=== PATIENT | female | born 1970 | race Caucasian/White ===

== ENCOUNTER 2019-07-23 21:35 | Emergency (ER) | payer SELFPAY ==
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
[2019-07-23] MEDS ORDERED: TETANUS & DIPHTHERIA TOX,ADULT 0.5 ML VIAL ONE (22:23)
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
[2019-07-23 22:53] VITALS: BP 153/62; TEMP 98.6; O2SAT 99
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
== END 2019-07-23 22:37 | disposition home or self-care (01) ==
LOC: ER 21:35
DX: S00.83XA Contusion of other part of head, initial encounter (principal); M25.552 Pain in left hip; V49.50XA Passenger injured in collision with unspecified motor vehicles in traffic accident, initial encounter; I10 Essential (primary) hypertension; F17.210 Nicotine dependence, cigarettes, uncomplicated; Z23 Encounter for immunization; Z88.0 Allergy status to penicillin; Z88.5 Allergy status to narcotic agent
CPT/HCPCS: 70450; 71045; 72125; 90471; 90714; 99284

== ENCOUNTER 2019-12-13 13:40 | Emergency (ER) | payer SELFPAY, OTHER ==
[2019-12-13 15:55] LABS: Absolute Lymphocytes (CBC) 1.8 K/uL (0.7-4.9); Basophils % 0.4 % (0-1.3); Hematocrit 42.4 % (36.0-45.0); Lymphocytes % 21.5 % (15.3-44.8); MPV 8.8 fL (7.6-11.3); RBC Red Blood Cell Count 4.75 M/uL (3.86-4.86)
--- NOTE | 2019-12-13 16:05 | RAD REPORT ---
EXAM DESCRIPTION: RAD - Chest Single View - 12/13/2019 3:54 pm CLINICAL HISTORY: COPD;Congestion;Cough Chest pain. COMPARISON: Chest Single View dated 07/23/2019 FINDINGS: Portable technique limits examination quality. The lungs are grossly clear. The heart is normal in size. No displaced fractures. IMPRESSION: No acute intrathoracic process suspected.
[2019-12-13] MEDS ORDERED: ALBUTEROL 2.5 MG/3 ML NEB SOL ONE (16:12)
[2019-12-13] MEDS ORDERED: IPRATROPIUM BROM 0.5MG/2.5ML ONE (16:12)
[2019-12-13] MEDS ORDERED: predniSONE 20 MG TAB ONE (16:12)
[2019-12-13] MEDS ORDERED: METHYLPREDNISOLONE 125 MG INJ ONE (16:12)
[2019-12-13] MEDS ORDERED: CEFTRIAXONE/SWI 1gm 2 GM/20 ML SYR ONE (16:13)
[2019-12-13] MEDS ORDERED: NA CHLORIDE 0.9% 1,000 ML ONE (16:13)
[2019-12-13 16:20] LABS: ALT/SGPT 37 U/L (12-78); AST/SGOT 17 U/L (15-37); Albumin 3.3 g/dL (3.4-5.0); Alkaline Phosphatase 88 U/L (45-117); BUN Blood Urea Nitrogen 18 mg/dL (7-18); Bicarbonate 26 mmol/L (21-32); Bilirubin Direct < 0.1 mg/dL (0-0.2); Bilirubin Total 0.3 mg/dL (0.2-1.0); Glucose Level 84 mg/dL (74-106); NT PRO-BNP 15 pg/mL (<125); Potassium 4.1 mmol/L (3.5-5.1); Protein, Total 7.7 g/dL (6.4-8.2); Sodium Level 137 mmol/L (136-145); Troponin (Emerg Dept Use Only) < 0.02 ng/mL (0.0-0.045)
[2019-12-13] MEDS ORDERED: ASPIRIN 81 MG CHEWABLE TABLET ONE (16:20)
[2019-12-13 16:44] LABS: Urine Blood TRACE (NEG); Urine Glucose NEGATIVE (NEG); Urine Protein NEGATIVE (NEG); Urine pH 5.5 (5.0-7.0)
[2019-12-13] MEDS ORDERED: AZITHROMYCIN IV 500 MG in NA CHLORIDE 0.9% 250 ML IVPB ONE (17:00)
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
--- NOTE | 2019-12-13 17:51 | EDPHYS ---
Physician Documentation [facility] Name: Kaitlin Browning Age: 49 yrs Sex: Female : 1970 Arrival Date: 12/13/2019 Time: 13:44 Bed 7 Private MD: EMILY Physician Epifanio Flaherty HPI: 12/12 15:08 This 49 yrs old Female presents to ER via Ambulatory with complaints of dimitry Cough, Sore Throat, Dizziness. 15:08 This 49 yrs old Female presents to ER via Ambulatory with complaints of dimitry Cough, Sore Throat, Dizziness. 15:08 The patient or guardian reports cough, difficulty breathing, flu symptoms. Onset: The dimitry symptoms/episode began/occurred 3 day(s) ago. Severity of symptoms: At their worst the symptoms were mild, moderate, in the emergency department the symptoms are unchanged. Modifying factors: The symptoms are alleviated by. Associated signs and symptoms: The patient has no apparent associated signs or symptoms. The patient has experienced similar episodes in the past, a few times. 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 - Social history:: Smoking status: Patient reports the use of cigarette tobacco products, smokes one pack cigarettes per day. ROS: 15:09 Constitutional: Negative for fever, chills, and weight loss, Eyes: Negative for injury, dimitry pain, redness, and discharge, ENT: Negative for injury, pain, and discharge, Neck: Negative for injury, pain, and swelling, Cardiovascular: Negative for chest pain, palpitations, and edema, Abdomen/GI: Negative for abdominal pain, nausea, vomiting, diarrhea, and constipation, Back: Negative for injury and pain, : Negative for injury, bleeding, discharge, and swelling, MS/Extremity: Negative for injury and deformity, Skin: Negative for injury, rash, and discoloration, Neuro: Negative for headache, weakness, numbness, tingling, and seizure, Psych: Negative for depression, anxiety, suicide ideation, homicidal ideation, and hallucinations, Allergy/Immunology: Negative for hives, rash, and allergies, Endocrine: Negative for neck swelling, polydipsia, polyuria, polyphagia, and marked weight changes, Hematologic/Lymphatic: Negative for swollen nodes, abnormal bleeding, and unusual bruising. 15:09 Respiratory: Positive for cough, shortness of breath, wheezing, inspiratory, expiratory. Exam: 15:09 Constitutional: This is a well developed, well nourished patient who is awake, alert, dimitry and in no acute distress. Head/Face: Normocephalic, atraumatic. Eyes: Pupils equal round and reactive to light, extra-ocular motions intact. Lids and lashes normal. Conjunctiva and sclera are non-icteric and not injected. Cornea within normal limits. Periorbital areas with no swelling, redness, or edema. ENT: Nares patent. No nasal discharge, no septal abnormalities noted. Tympanic membranes are normal and external auditory canals are clear. Oropharynx with no redness, swelling, or masses, exudates, or evidence of obstruction, uvula midline. Mucous membranes moist. Neck: Trachea midline, no thyromegaly or masses palpated, and no cervical lymphadenopathy. Supple, full range of motion without nuchal rigidity, or vertebral point tenderness. No Meningismus. Chest/axilla: Normal chest wall appearance and motion. Nontender with no deformity. No lesions are appreciated. Cardiovascular: Regular rate and rhythm with a normal S1 and S2. No gallops, murmurs, or rubs. Normal PMI, no JVD. No pulse deficits. Abdomen/GI: Soft, non-tender, with normal bowel sounds. No distension or tympany. No guarding or rebound. No evidence of tenderness throughout. Back: No spinal tenderness. No costovertebral tenderness. Full range of motion. Skin: Warm, dry with normal turgor. Normal color with no rashes, no lesions, and no evidence of cellulitis. MS/ Extremity: Pulses equal, no cyanosis. Neurovascular intact. Full, normal range of motion. Neuro: Awake and alert, GCS 15, oriented to person, place, time, and situation. Cranial nerves II-XII grossly intact. Motor strength 5/5 in all extremities. Sensory grossly intact. Cerebellar exam normal. Normal gait. Psych: Awake, alert, with orientation to person, place and time. Behavior, mood, and affect are within normal limits. 15:09 Respiratory: mild respiratory distress is noted, Respirations: labored breathing, that is moderate, Breath sounds: bronchial sounds, decreased breath sounds, wheezing: inspiratory expiratory Respiratory rate: 18 17:03 ECG was reviewed by the Attending Physician. [facility] Vital Signs: 14:19 BP 142 / 71; Pulse 84; Resp 18 S; Temp 98.5(O); Pulse Ox 95% on R/A; Height 6 ft. 0 in. ca1 (182.88 cm) (R); 16:09 BP 125 / 66; Pulse 75; Resp 17; Pulse Ox 97% on R/A; tw2 17:01 BP 129 / 71; Pulse 80; Resp 20; Pulse Ox 98% on R/A; tw2 18:11 BP 102 / 67; Pulse 91; Resp 19; Pulse Ox 98% ; jl7 MDM: 14:40 Patient medically screened. dimitry 15:10 Differential diagnosis: viral Infection, bacterial infection, URI, bronchitis, dimitry pneumonia UTI. Differential Diagnosis: Bronchitis Influenza Upper Respiratory Infection Pharyngitis Asthma Exacerbation Pneumonia. Data reviewed: vital signs, nurses notes, lab test result(s), EKG, radiologic studies. Data interpreted: crate opener: rate is 84 beats/min, rhythm is regular, Pulse oximetry: on room air is 95 %. Test interpretation: by ED physician or midlevel provider: ECG, plain radiologic studies. Counseling: I had a detailed discussion with the patient and/or guardian regarding: the historical points, exam findings, and any diagnostic results supporting the discharge/admit diagnosis, lab results, radiology results, the need for outpatient follow up. 16:12 ED course: explained importance of not smoking. [facility] 12/12 15:08 Order name: Basic Metabolic Panel; Complete Time: 16:34 [facility] 12/12 15:08 Order name: CBC with Diff; Complete Time: 16:05 [facility] 12/12 15:08 Order name: LFT's; Complete Time: 16:34 [facility] 12/12 15:08 Order name: Magnesium; Complete Time: 16:34 [facility] 12/12 15:08 Order name: NT PRO-BNP; Complete Time: 16:34 [facility] 12/12 15:08 Order name: Troponin (emerg Dept Use Only); Complete Time: 16:34 [facility] 12/12 15:08 Order name: XRAY Chest (1 view); Complete Time: 16:11 [facility] 12/12 15:08 Order name: Blood Culture Adult (2) 12/12 15:08 Order name: COVID-19 [facility] 12/12 15:08 Order name: Influenza Screen (a \T\ B); Complete Time: 16:34 [facility] 12/12 15:12 Order name: DD; Complete Time: 16:05 12/12 15:12 Order name: Urine Culture 12/12 15:26 Order name: Urine Dipstick--Ancillary (enter results); Complete Time: 17:49 12/12 15:26 Order name: Urine --Ancillary (enter results); Complete Time: 17:49 12/12 15:08 Order name: EKG; Complete Time: 15:09 [facility] 12/12 15:08 Order name: Cardiac monitoring; Complete Time: 16:41 [facility] 12/12 15:08 Order name: EKG - Nurse/Tech; Complete Time: 16:41 [facility] 12/12 15:08 Order name: IV Saline Lock; Complete Time: 15:47 [facility] 12/12 15:08 Order name: Labs collected and sent; Complete Time: 15:47 [facility] 12/12 15:08 Order name: O2 Per Protocol; Complete Time: 15:47 [facility] 12/12 16:05 Order name: CT Chest For PE Angio; Complete Time: 17:49 [facility] 12/12 15:08 Order name: O2 Sat Monitoring; Complete Time: 15:47 [facility] 12/12 15:12 Order name: Urine Dipstick-Ancillary (obtain specimen); Complete Time: 15:46 [facility] 12/12 15:12 Order name: Urine Test (obtain specimen); Complete Time: 15:46 [facility] EC:03 Rate is 76 beats/min. Rhythm is regular. QRS [place] is Normal. DC interval is normal. QRS dimitry interval is normal. QT interval is normal. No Q waves. T waves are Normal. No ST changes noted. Clinical impression: NSR w/ Non-specific ST/T Changes and No evidence of ischemia. Interpreted by me. Reviewed by me. Administered Medications: 15:45 Drug: NS 0.9% 500 ml Route: IV; Rate: bolus; Site: right hand; jl7 16:30 Follow up: Response: No adverse reaction; IV Status: Completed infusion; IV Intake: jl7 500ml 16:00 Drug: SOLU-Medrol 125 mg Route: IVP; Site: right hand; jl7 16:55 Follow up: Response: No adverse reaction jl7 16:00 Drug: predniSONE 60 mg Route: PO; jl7 16:54 Follow up: Response: No adverse reaction jl7 16:10 Drug: Aspirin 162 mg Route: PO; jl7 16:54 Follow up: Response: No adverse reaction jl7 16:35 Drug: Rocephin 2 grams Route: IV; Rate: per protocol; Site: right hand; jl7 16:40 Follow up: Response: No adverse reaction; IV Status: Completed infusion jl7 16:39 Drug: NS 0.9% 1000 ml Route: IV; Rate: 125 ml/hr; Site: right hand; jl7 18:30 Follow up: IV Status: Completed infusion jl7 16:39 Drug: Albuterol - atroVENT (3:1) (2.5 mg - 0.5 mg) 3 ml Route: Nebulizer; jl7 16:54 Follow up: Response: No adverse reaction jl7 17:15 Drug: Zithromax 500 mg Route: IVPB; Infused Over: 1 hrs; Site: right hand; jl7 18:52 Follow up: IV Status: Completed infusion jl7 18:00 Drug: Pepcid 20 mg Route: IVP; Site: right hand; jl7 18:10 Follow up: Response: No adverse reaction [facility] Disposition: 12/13/19 17:50 Discharged to Home. Impression: Tobacco abuse counseling, Tobacco use, Bronchitis, not specified as acute or chronic, Acute upper respiratory infection, unspecified, Other pneumonia, unspecified organism - atypical/viral. - Condition is Stable. - Discharge Instructions: Acute Bronchitis, Adult, Steps to Quit Smoking, Smoking Hazards, Upper Respiratory Infection, Adult, Cool Mist Vaporizer, Cough, Adult, [id number], Aspirin and Your Heart, Cough, Adult. - Prescriptions for Prednisone 20 mg Oral Tablet - take 3 tablet by ORAL route once daily for 5 days; 15 tablet. Albuterol Sulfate 2.5 mg /3 mL (0.083 %) Inhalation Solution for Nebulization - inhale 1 unit by NEBULIZATION route every 8 hours As needed; 1 box. Albuterol Sulfate 90 mcg/actuation - inhale 1-2 puff by INHALATION route every 4-6 hours; 1 Inhaler. Zithromax 500 mg Oral Tablet - take 1 tablet by ORAL route once daily for 5 days; 5 tablet. Pepcid 20 mg Oral Tablet - take 1 tablet by ORAL route every 12 hours for 10 days; 20 tablet. - Medication Reconciliation Form, Thank You Letter, Antibiotic Education, Prescription Opioid Use, Work release form form. - Follow up: Private Physician; When: 2 - 3 days; Reason: Recheck today's complaints, Continuance of care, Re-evaluation by your physician. Follow up: Juan Ovalles; When: 2 - 3 days; Reason: Recheck today's complaints, Re-evaluation by your physician. - Problem is new. - Symptoms have improved. Signatures: Dispatcher [employer] EDMS Epifanio Flaherty MD MD cha Leal, Jahala, RN RN jl7 Keke Carlson RN RN ca1 Corrections: (The following items were deleted from the chart) 18:53 17:50 12/13/2019 17:50 Discharged to Home. Impression: Tobacco abuse counseling; krunal Tobacco use; Bronchitis, not specified as acute or chronic; Acute upper respiratory infection, unspecified; Other pneumonia, unspecified organism - atypical/viral. Condition is Stable. Discharge Instructions: Acute Bronchitis, Adult, Steps to Quit Smoking, Smoking Hazards, Upper Respiratory Infection, Adult, Cool Mist Vaporizer, Cough, Adult, [id number], Cough, Adult, Aspirin and Your Heart. Prescriptions for Prednisone 20 mg Oral Tablet - take 3 tablet by ORAL route once daily for 5 days; 15 tablet, Albuterol Sulfate 2.5 mg /3 mL (0.083 %) Inhalation Solution for Nebulization - inhale 1 unit by NEBULIZATION route every 8 hours As needed; 1 box, Albuterol Sulfate 90 mcg/actuation - inhale 1-2 puff by INHALATION route every 4-6 hours; 1 Inhaler, Zithromax 500 mg Oral Tablet - take 1 tablet by ORAL route once daily for 5 days; 5 tablet. and Forms are Medication Reconciliation Form, Thank You Letter, Antibiotic Education, Prescription Opioid Use. Follow up: Private Physician; When: 2 - 3 days; Reason: Recheck today's complaints, Continuance of care, Re-evaluation by your physician. Follow up: Juan Ovalles; When: 2 - 3 days; Reason: Recheck today's complaints, Re-evaluation by your physician. Problem is new. Symptoms have improved. dimitry
--- NOTE | 2019-12-13 17:51 | ER ---
Nurse's Notes [facility] Name: Kaitlin Browning Age: 49 yrs Sex: Female : 1970 Arrival Date: 12/13/2019 Time: 13:44 Bed 7 Private MD: Diagnosis: Tobacco abuse counseling;Tobacco use;Bronchitis, not specified as acute or chronic;Acute upper respiratory infection, unspecified;Other pneumonia, unspecified organism-atypical/viral Presentation: 12/12 14:19 Chief complaint: Patient states: Productive cough x 1 month, nasal congestion, ca1 headache, fever since Thursday. RLQ pain, N/V. Muscle aches, sore throat. Coronavirus screen: Client denies travel out of the [place] in the last 14 days. congestion, cough unrelated to allergies, fatigue, fever, headache, muscle pain, nausea, runny nose, sore throat, loss of taste or smell, vomiting. Client presents with at least one sign or symptom that may indicate coronavirus-19. Standard/surgical mask placed on the client. Provider contacted for isolation considerations. The client reports previous COVID testing was negative. Ebola Screen: Patient negative for fever greater than or equal to 101.5 degrees Fahrenheit, and additional compatible Ebola Virus Disease symptoms Patient denies exposure to infectious person. Patient denies travel to an Ebola-affected area in the 21 days before illness onset. No symptoms or risks identified at this time. Initial Sepsis Screen: Does the patient meet any 2 criteria? No. Patient's initial sepsis screen is negative. Does the patient have a suspected source of infection? No. Patient's initial sepsis screen is negative. Risk Assessment: Do you want to hurt yourself or someone else? Patient reports no desire to harm self or others. Onset of symptoms was December 13, 2019. 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 - Social history:: Smoking status: Patient reports the use of cigarette tobacco products, smokes one pack cigarettes per day. Screenin:12 Abuse screen: Denies threats or abuse. Nutritional screening: No deficits noted. tw2 Tuberculosis screening: No symptoms or risk factors identified. Fall Risk None identified. Assessment: 15:00 General: Appears in no apparent distress. uncomfortable, Behavior is calm, cooperative, jl7 appropriate for age. Pain: Complains of pain in left subscapular area. Neuro: Level of Consciousness is awake, alert, obeys commands, Oriented to person, place, time, situation. Cardiovascular: Patient's skin is warm and dry. Respiratory: Airway is patent Respiratory effort is even, unlabored, Respiratory pattern is regular, symmetrical, not auscultated. : Reports urinary frequency. EENT: Throat is clear. Derm: Skin is pink, warm \T\ dry. 16:00 Reassessment: Patient appears in no apparent distress at this time. No changes from jl7 previously documented assessment. Patient and/or family updated on plan of care and expected duration. Pain level reassessed. Patient is alert, oriented x 3, equal unlabored respirations, skin warm/dry/pink. 17:02 Reassessment: Patient appears in no apparent distress at this time. No changes from tw2 previously documented assessment. Patient and/or family updated on plan of care and expected duration. Pain level reassessed. Patient is alert, oriented x 3, equal unlabored respirations, skin warm/dry/pink. 18:11 Reassessment: Pt will be discharged once antibiotic is done infusing. jl7 Vital Signs: 14:19 BP 142 / 71; Pulse 84; Resp 18 S; Temp 98.5(O); Pulse Ox 95% on R/A; Height 6 ft. 0 in. ca1 (182.88 cm) (R); 16:09 BP 125 / 66; Pulse 75; Resp 17; Pulse Ox 97% on R/A; tw2 17:01 BP 129 / 71; Pulse 80; Resp 20; Pulse Ox 98% on R/A; tw2 18:11 BP 102 / 67; Pulse 91; Resp 19; Pulse Ox 98% ; jl7 ED Course: 13:44 Patient arrived in ED. mr 14:22 Triage completed. ca1 14:23 Arm band placed on right wrist. ca1 14:37 Placed in gown. Bed in low position. Call light in reach. Pulse ox on. NIBP on. tw2 14:40 Epifanio Flaherty MD is Attending Physician. dimitry 15:10 Alonzo Rogel RN is Primary Nurse. jl7 15:45 Initial lab(s) drawn, by me, sent to lab. Flu and/or RSV swab sent to lab. COVID-19 jl7 swab sent to lab. Inserted saline lock: 20 gauge in right hand, using aseptic technique. Blood collected. 15:45 First set of blood cultures drawn by me. jl7 15:54 XRAY Chest (1 view) In Process Unspecified. EDMS 16:35 Second set of blood cultures drawn by me. jl7 17:14 CT Chest For PE Angio In Process Unspecified. EDMS 17:49 Juan Ovalles MD is Referral Physician. dimitry 18:51 No provider procedures requiring assistance completed. IV discontinued, intact, jl7 bleeding controlled, No redness/swelling at site. Pressure dressing applied. Administered Medications: 15:45 Drug: NS 0.9% 500 ml Route: IV; Rate: bolus; Site: right hand; jl7 16:30 Follow up: Response: No adverse reaction; IV Status: Completed infusion; IV Intake: jl7 500ml 16:00 Drug: SOLU-Medrol 125 mg Route: IVP; Site: right hand; jl7 16:55 Follow up: Response: No adverse reaction jl7 16:00 Drug: predniSONE 60 mg Route: PO; jl7 16:54 Follow up: Response: No adverse reaction jl7 16:10 Drug: Aspirin 162 mg Route: PO; jl7 16:54 Follow up: Response: No adverse reaction jl7 16:35 Drug: Rocephin 2 grams Route: IV; Rate: per protocol; Site: right hand; jl7 16:40 Follow up: Response: No adverse reaction; IV Status: Completed infusion jl7 16:39 Drug: NS 0.9% 1000 ml Route: IV; Rate: 125 ml/hr; Site: right hand; jl7 18:30 Follow up: IV Status: Completed infusion jl7 16:39 Drug: Albuterol - atroVENT (3:1) (2.5 mg - 0.5 mg) 3 ml Route: Nebulizer; jl7 16:54 Follow up: Response: No adverse reaction jl7 17:15 Drug: Zithromax 500 mg Route: IVPB; Infused Over: 1 hrs; Site: right hand; jl7 18:52 Follow up: IV Status: Completed infusion jl7 18:00 Drug: Pepcid 20 mg Route: IVP; Site: right hand; jl7 18:10 Follow up: Response: No adverse reaction jl7 Intake: 16:30 IV: 500ml; Total: 500ml. jl7 Outcome: 17:50 Discharge ordered by . dimitry 18:51 Discharged to home ambulatory. jl7 18:51 Condition: stable 18:51 Discharge instructions given to patient, Instructed on discharge instructions, follow up and referral plans. medication usage, Demonstrated understanding of instructions, follow-up care, medications, Prescriptions given X 5 18:53 Patient left the ED. jl7 Addendum: 12/16/2019 18:53 Addendum: COVID-19 Result: Negative result given to RN to notify pt. Notified pt of i w negative COVID 19 swab results. Pt advised that even with a negative test result they should remain in isolation until symptom free for 3 days without medication. Pt also advised to return to the ED for worsening symptoms. Signatures: Dispatcher [employer] EDMS Epifanio Flaherty MD MD cha Rivera, Neda Alessandra Yi, RN ULISES iw Domi Sears RN RN tw2 Alonzo Rogel RN RN jl7 Keke Carlson RN RN ca1 Corrections: (The following items were deleted from the chart) 12/12 14:24 14:19 Chief complaint: Patient states: Productive cough x 1 month, nasal congestion, ca1 headache, fever since Thursday. RLQ pain, N/V. Muscle aches. ca1 14:24 14:19 Coronavirus screen: Client denies travel out of the [place] in the last 14 days. ca1 congestion, cough unrelated to allergies, fatigue, fever, headache, muscle pain, nausea, runny nose, loss of taste or smell, vomiting. Client presents with at least one sign or symptom that may indicate coronavirus-19. Standard/surgical mask placed on the client. Provider contacted for isolation considerations. The client reports previous COVID testing was negative. ca1 16:57 16:57 Response: No adverse reaction; IV Status: Completed infusion; IV Intake: 500ml [id number]
[2019-12-13] MEDS ORDERED: FAMOTIDINE 20 MG/2 ML VIAL IV ONE (18:12)
[2019-12-13 19:11] VITALS: TEMP 98.5
[2019-12-13 19:14] VITALS: O2SAT 98
[2019-12-13 19:15] VITALS: BP 102/67
--- NOTE | 2019-12-14 05:38 | EKG ---
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
== END 2019-12-13 18:53 | disposition home or self-care (01) ==
LOC: ER 13:40
DX: J12.9 Viral pneumonia, unspecified (principal); Z20.828 Contact with and (suspected) exposure to other viral communicable diseases; J40 Bronchitis, not specified as acute or chronic; I10 Essential (primary) hypertension; Z72.0 Tobacco use; Z71.6 Tobacco abuse counseling; Z88.0 Allergy status to penicillin; Z88.5 Allergy status to narcotic agent
CPT/HCPCS: 36415; 71045; 71275; 80048; 80076; 81003; 81025; 83735; 83880; 84484; 85025; 85379; 87040; 87086; 87088; 87804; 93005; 96361; 96365; 96366; 96375; 99284; J0456; J0696; J2930; J7030; J7050; J7512; Q9967; U0002

== ENCOUNTER 2020-08-13 17:32 | Emergency (ER) | payer BC, SELFPAY ==
[2020-08-13 20:02] LABS: Absolute Lymphocytes (CBC) 2.2 K/uL (0.7-4.9); Basophils % 0.8 % (0-1.3); Hematocrit 39.8 % (36.0-45.0); MPV 8.8 fL (7.6-11.3); RBC Red Blood Cell Count 4.53 M/uL (3.86-4.86)
[2020-08-13 20:16] LABS: Protime INR 0.97
[2020-08-13 20:25] LABS: ALT/SGPT 31 U/L (12-78); AST/SGOT 20 U/L (15-37); Albumin 3.5 g/dL (3.4-5.0); Alkaline Phosphatase 81 U/L (45-117); BUN Blood Urea Nitrogen 14 mg/dL (7-18); Bicarbonate 23 mmol/L (21-32); Bilirubin Direct < 0.1 mg/dL (0-0.2); Bilirubin Total 0.2 mg/dL (0.2-1.0); Glucose Level 83 mg/dL (74-106); Magnesium 2.2 mg/dL (1.8-2.4); NT PRO-BNP 91 pg/mL (<125); Potassium 3.8 mmol/L (3.5-5.1); Protein, Total 7.3 g/dL (6.4-8.2); Sodium Level 139 mmol/L (136-145); Troponin (Emerg Dept Use Only) < 0.02 ng/mL (0.0-0.045)
--- NOTE | 2020-08-13 20:26 | RAD REPORT ---
EXAM DESCRIPTION: RAD - Chest Single View - 08/13/2020 7:54 pm CLINICAL HISTORY: CHEST PAIN COMPARISON: Portable November 2019 TECHNIQUE: AP portable chest image was obtained 08/13/2020 7:54 pm . FINDINGS: Lung volumes are low. No focal mass or consolidation. Cardiac silhouette is enlarged from prior imaging. Pulmonary vasculature increased and there is increased interstitial opacification. No measurable pleural effusion and no pneumothorax. No acute bony abnormality seen. No acute aortic find ings suspected. IMPRESSION: Mild CHF/volume overload findings are evident. No focal mass or consolidation.
[2020-08-13] MEDS ORDERED: FUROSEMIDE 40 MG/4 ML VIAL ONE (22:06)
--- NOTE | 2020-08-13 23:24 | ER ---
Nurse's Notes [facility] Name: Kaitlin Browning Age: 50 yrs Sex: Female : 1970 Arrival Date: 08/13/2020 Time: 17:36 Bed 20 Private MD: Diagnosis: Chest pain, unspecified;Congestive heart failure;Dizziness and giddiness Presentation: 08/13 17:40 Chief complaint: Patient states: Head pressure, dizzy, R arm tingling, chest heaviness, ll1 SOB for 3 days. No major or fever. No N/V/D. Coronavirus screen: Client denies travel out of the [place] in the last 14 days. cough unrelated to allergies, difficulty breathing, fatigue, headache, muscle pain, shortness of breath, loss of taste or smell, Client presents with at least one sign or symptom that may indicate coronavirus-19. Standard/surgical mask placed on the client. Ebola Screen: Patient denies travel to an Ebola-affected area in the 21 days before illness onset. Initial Sepsis Screen: Does the patient meet any 2 criteria? No. Patient's initial sepsis screen is negative. Does the patient have a suspected source of infection? No. Patient's initial sepsis screen is negative. Risk Assessment: Do you want to hurt yourself or someone else? Patient reports no desire to harm self or others. Onset of symptoms was August 11, 2020. 17:40 Method Of Arrival: Ambulatory ll1 17:40 Acuity: PERRY 3 ll1 Historical: - Allergies: 17:43 Morphine; ll1 17:43 pcn; ll1 - PMHx: 17:43 CHF; HTN; ll1 - PSHx: 17:43 ; ll1 - Immunization history:: Flu vaccine is up to date. - Social history:: Smoking status: Patient reports the use of cigarette tobacco products, smokes one pack cigarettes per day. Screenin:45 Abuse screen: Denies threats or abuse. Denies injuries from another. Nutritional ad5 screening: No deficits noted. Tuberculosis screening: No symptoms or risk factors identified. Fall Risk None identified. Assessment: 19:45 General: Appears in no apparent distress. comfortable, Behavior is calm, cooperative, ad5 appropriate for age. Pain: Complains of pain in chest Pain does not radiate. Pain began 2-3 days ago. Neuro: Level of Consciousness is awake, alert, obeys commands, Oriented to person, place, time, situation, Appropriate for age Piece Jobber are equal bilaterally Moves all extremities. Gait is steady, Speech is normal, Facial symmetry appears normal, Pupils are PERRLA, Intact Reports dizziness. Cardiovascular: Reports chest pain, shortness of breath, Denies nausea, syncope, vomiting, Heart tones present Capillary refill < 3 seconds Clubbing of nail beds is absent JVD is absent Patient's skin is warm and dry. Pulses are all present. Rhythm is regular. Respiratory: No deficits noted. Reports shortness of breath "at night" Airway is patent Trachea midline Respiratory effort is even, unlabored, Respiratory pattern is regular, symmetrical, Breath sounds are clear bilaterally. GI: No deficits noted. : No deficits noted. EENT: No deficits noted. Derm: No deficits noted. Skin is pink, warm \\T\\ dry. 20:35 Reassessment: Patient appears in no apparent distress at this time. Patient and/or ad5 family updated on plan of care and expected duration. Pain level reassessed. Patient is alert, oriented x 3, equal unlabored respirations, skin warm/dry/pink. 21:20 Reassessment: Patient appears in no apparent distress at this time. Patient and/or ad5 family updated on plan of care and expected duration. Pain level reassessed. Patient is alert, oriented x 3, equal unlabored respirations, skin warm/dry/pink. 22:30 Reassessment: Patient appears in no apparent distress at this time. Patient and/or ad5 family updated on plan of care and expected duration. Pain level reassessed. Patient is alert, oriented x 3, equal unlabored respirations, skin warm/dry/pink. Patient states symptoms have improved. 23:30 Reassessment: Patient appears in no apparent distress at this time. No changes from ad5 previously documented assessment. Patient denies pain at this time. Vital Signs: 17:40 BP 141 / 95; Pulse 81; Resp 17; Temp 98.3; Pulse Ox 97% ; Weight 145.15 kg; Height 6 ll1 ft. 0 in. (182.88 cm); Pain 9/10; 19:30 BP 113 / 61; Pulse 62; Resp 18 S; Pulse Ox 98% on R/A; ad5 20:34 BP 120 / 76; Pulse 73; Resp 18 S; Pulse Ox 100% on R/A; ad5 21:20 BP 134 / 69; Pulse 72; Resp 17 S; Pulse Ox 98% on R/A; ad5 22:02 BP 139 / 69; Pulse 71; Resp 17 S; Pulse Ox 99% on R/A; ad5 23:00 BP 130 / 65; Pulse 70; Resp 16 S; Pulse Ox 98% on R/A; ad5 17:40 Body Mass Index 43.40 (145.15 kg, 182.88 cm) ll1 ED Course: 17:36 Patient arrived in ED. bp1 17:43 Triage completed. ll1 17:43 Arm band placed on. ll1 18:42 Patient placed in an exam room, on a stretcher. ll1 18:45 Patient has correct armband on for positive identification. Placed in gown. Bed in low ad5 position. Call light in reach. Side rails up X 1. color television console monitor on. Pulse ox on. NIBP on. Door closed. Noise minimized. Head of bed elevated. 19:01 Quinton Black NP is PHCP. pm1 19:01 Yaakov Mathew MD is Attending Physician. pm1 19:23 Matheus Suarez is Primary Nurse. ad5 19:45 No provider procedures requiring assistance completed. Initial lab(s) drawn, by me, ad5 sent to lab. Inserted saline lock: 20 gauge in right hand, using aseptic technique. Patient maintains SpO2 saturation greater than 95% on room air. 19:54 XRAY Chest (1 view) In Process Unspecified. EDMS 23:39 IV discontinued, intact, bleeding controlled, No redness/swelling at site. Pressure ad5 dressing applied. Administered Medications: 21:53 Drug: Lasix (furosemide) 40 mg Route: IVP; Site: right hand; ad5 23:00 Follow up: Response: No adverse reaction ad5 Outcome: 23:39 AMA AMA form signed ad5 23:39 Condition: stable 23:39 Discharge instructions given to patient, Instructed on follow up and referral plans. the need for admit, Demonstrated understanding of follow-up care. 06 00:03 Patient left the ED. ad5 Signatures: Dispatcher [employer] EDMS Quinton Black, NIYA SOLAR INSTALLATION FOREMAN pm1 Trever Trejo RN RN ll1 Elida Mccormick [facility] Suarez, Matheus ad5
--- NOTE | 2020-08-13 23:24 | EDPHYS ---
Physician Documentation [facility] Name: Kaitlin Browning Age: 50 yrs Sex: Female : 1970 Arrival Date: 08/13/2020 Time: 17:36 Bed 20 Private MD: ED Physician Yaakov Mathew HPI: 08/13 19:19 This 50 yrs old Female presents to ER via Ambulatory with complaints of Chest pm1 Pain, Dizziness, Breathing Difficulty. 19:19 The patient or guardian reports chest pain that is located primarily in the mid-sternal pm1 area and right breast. Onset: 3 day(s) ago. The pain does not radiate. Associated signs and symptoms: Pertinent positives: dizziness, shortness of breath, Pertinent negatives: abdominal pain, cough. The chest pain is described as a pressure. Duration: The patient or guardian reports a single episode, that is still ongoing. Modifying factors: The symptoms are alleviated by nothing. the symptoms are aggravated by nothing. Severity of pain: in the emergency department the pain is unchanged. The patient has not experienced similar symptoms in the past. The patient has not recently seen a physician. Patient has not taken any medications for a long time. In the past she has taken lasix. Only took it for about 3 months. When prescription ran out, she did not get it refilled. Historical: - Allergies: 17:43 Morphine; ll1 17:43 pcn; ll1 - PMHx: 17:43 CHF; HTN; ll1 - PSHx: 17:43 ; ll1 - Immunization history:: Flu vaccine is up to date. - Social history:: Smoking status: Patient reports the use of cigarette tobacco products, smokes one pack cigarettes per day. ROS: 19:19 Constitutional: Negative for fever, chills, and weight loss, Eyes: Negative for injury, pm1 pain, redness, and discharge, ENT: Negative for injury, pain, and discharge, Neck: Negative for injury, pain, and swelling. 19:19 Abdomen/GI: Negative for abdominal pain, nausea, vomiting, diarrhea, and constipation, Back: Negative for injury and pain, : Negative for injury, bleeding, discharge, and swelling, MS/Extremity: Negative for injury and deformity, Skin: Negative for injury, rash, and discoloration. 19:19 Cardiovascular: Positive for chest pain, Negative for edema. 19:19 Respiratory: Positive for shortness of breath, Negative for cough. 19:19 Neuro: Positive for dizziness, Negative for numbness, tingling, weakness. Exam: 19:19 Constitutional: This is a well developed, well nourished patient who is awake, alert, pm1 and in no acute distress. Head/Face: Normocephalic, atraumatic. Eyes: Pupils equal round and reactive to light, extra-ocular motions intact. Lids and lashes normal. Conjunctiva and sclera are non-icteric and not injected. Cornea within normal limits. Periorbital areas with no swelling, redness, or edema. ENT: Nares patent. No nasal discharge, no septal abnormalities noted. Tympanic membranes are normal and external auditory canals are clear. Oropharynx with no redness, swelling, or masses, exudates, or evidence of obstruction, uvula midline. Mucous membranes moist. Neck: Trachea midline, no thyromegaly or masses palpated, and no cervical lymphadenopathy. Supple, full range of motion without nuchal rigidity, or vertebral point tenderness. No Meningismus. Chest/axilla: Normal chest wall appearance and motion. Nontender with no deformity. No lesions are appreciated. 19:19 Back: No spinal tenderness. No costovertebral tenderness. Full range of motion. Skin: Warm, dry with normal turgor. Normal color with no rashes, no lesions, and no evidence of cellulitis. MS/ Extremity: Pulses equal, no cyanosis. Neurovascular intact. Full, normal range of motion. 19:19 Cardiovascular: Rate: normal, Rhythm: irregular, Pulses: no pulse deficits are appreciated, Heart sounds: normal, Edema: pedal edema, that is mild, ankle edema, that is mild. 19:19 Respiratory: the patient does not display signs of respiratory distress, Respirations: normal, Breath sounds: are clear throughout. 19:19 Neuro: Orientation: is normal, Mentation: is normal, Motor: is normal, moves all fours, Sensation: is normal, no obvious gross deficits. Vital Signs: 17:40 BP 141 / 95; Pulse 81; Resp 17; Temp 98.3; Pulse Ox 97% ; Weight 145.15 kg; Height 6 ll1 ft. 0 in. (182.88 cm); Pain 9/10; 19:30 BP 113 / 61; Pulse 62; Resp 18 S; Pulse Ox 98% on R/A; ad5 20:34 BP 120 / 76; Pulse 73; Resp 18 S; Pulse Ox 100% on R/A; ad5 21:20 BP 134 / 69; Pulse 72; Resp 17 S; Pulse Ox 98% on R/A; ad5 22:02 BP 139 / 69; Pulse 71; Resp 17 S; Pulse Ox 99% on R/A; ad5 23:00 BP 130 / 65; Pulse 70; Resp 16 S; Pulse Ox 98% on R/A; ad5 17:40 Body Mass Index 43.40 (145.15 kg, 182.88 cm) ll1 MDM: 19:01 Patient medically screened. pm1 23:19 Data reviewed: vital signs. Data interpreted: Pulse oximetry: on room air is 99 %. pm1 Interpretation: normal. 23:19 Counseling: I had a detailed discussion with the patient and/or guardian regarding: the pm1 historical points, exam findings, and any diagnostic results supporting the discharge/admit diagnosis, lab results, radiology results, the need for further work-up and treatment in the hospital. 23:19 Refusal of service: The patient/guardian displays adequate decision making capability pm1 and despite a detailed discussion of alternatives, benefits, risks, and consequences refuses: Admission to the hospital for further work-up and treatment. 23:19 ED course: Patient is signing out AMA and plans to follow up with a PCP/cardiology pm1 tomorrow. She currently does not have a PCP. Patient's symptoms markedly improved with diuresis in the ER. Will give the patient 2 days worth of lasix . 08/13 19:18 Order name: Basic Metabolic Panel pm1 08/13 19:18 Order name: CBC with Diff; Complete Time: 20:30 pm1 08/13 19:18 Order name: LFT's; Complete Time: 20:30 pm1 08/13 19:18 Order name: Magnesium; Complete Time: 20:30 pm1 08/13 19:18 Order name: NT PRO-BNP; Complete Time: 20:30 pm1 08/13 19:18 Order name: PT-INR; Complete Time: 20:30 pm1 08/13 17:55 Order name: EKG; Complete Time: 17:56 ll1 08/13 17:55 Order name: EKG - Nurse/Tech; Complete Time: 17:56 ll1 08/13 19:18 Order name: Troponin (emerg Dept Use Only); Complete Time: 20:30 pm1 08/13 19:18 Order name: XRAY Chest (1 view); Complete Time: 20:30 pm1 08/13 19:18 Order name: Cardiac monitoring; Complete Time: 21:10 pm1 08/13 19:18 Order name: IV Saline Lock; Complete Time: 21:10 pm1 08/13 19:19 Order name: Basic Metabolic Panel; Complete Time: 20:30 EDMS 08/13 19:18 Order name: Labs collected and sent; Complete Time: 21:10 pm1 08/13 19:18 Order name: O2 Per Protocol; Complete Time: 21:17 pm1 08/13 19:18 Order name: O2 Sat Monitoring; Complete Time: 21:17 pm1 Administered Medications: 21:53 Drug: Lasix (furosemide) 40 mg Route: IVP; Site: right hand; ad5 23:00 Follow up: Response: No adverse reaction ad5 Disposition: 08/14 19:08 Co-signature as Attending Physician, Yaakov Mathew MD. rn Disposition: 08/13/20 23:23 Patient has left against medical advice. Impression: Congestive heart failure, Chest pain, unspecified, Dizziness and giddiness. - Patients states they are going to Home. - Condition is Stable. - Discharge Instructions: Nonspecific Chest Pain, Heart Failure, Dizziness. - Prescriptions for Lasix 20 mg Oral Tablet - take 1 tablet by ORAL route once daily; 2 tablet. Follow up: Emergency Department; When: As needed; Reason: Worsening of condition. Follow up: Private Physician; When: Upon discharge from the Emergency Department; Reason: Recheck today's complaints, Continuance of care, Re-evaluation by your physician. - Problem is new. - Symptoms have improved. Signatures: Dispatcher [employer] EDMS Yaakov Mathew MD MD rn Marinas, Patrick, NIYA MANAGER STATISTICAL pm1 Trever Trejo RN RN ll1 Matheus Suarez ad5 Corrections: (The following items were deleted from the chart) 00:03 08/13 23:23 08/13/2020 23:23 Patients has left against medical advice. Impression: ad5 Congestive heart failureChest pain, unspecified; Dizziness and giddiness. Patient states they are going to Home. Condition is Stable. Follow up: Emergency Department; When: As needed; Reason: Worsening of condition. Follow up: Private Physician; When: Upon discharge from the Emergency Department; Reason: Recheck today's complaints, Continuance of care, Re-evaluation by your physician. Problem is new. Symptoms have improved. pm1
[2020-08-14 00:34] VITALS: TEMP 98.3
[2020-08-14 00:42] VITALS: BP 130/65; O2SAT 98
--- NOTE | 2020-08-15 12:02 | EKG ---
Test Date: 2020-08-13 Test Time: 17:50:45 Paper Wrapping Machine Operator: LML MEASUREMENT RESULTS: Intervals: Rate: 78 RI: 148 QRSD: 80 QT: 392 QTc: 446 [place]: P: 59 RI: 148 QRS: -12 T: 16 INTERPRETIVE STATEMENTS: Normal sinus rhythm Low voltage QRS Cannot rule out Anterior infarct, age undetermined Abnormal ECG Compared to ECG 12/13/2019 16:37:07 Low QRS voltage now present Myocardial infarct finding still present Electronically Signed On 08-15-20 11:54:35 CDT by Kota Betancourt
== END 2020-08-14 00:03 | disposition left against medical advice (07) ==
LOC: ER 17:32
DX: R07.9 Chest pain, unspecified (principal); R42 Dizziness and giddiness; I11.0 Hypertensive heart disease with heart failure; I50.9 Heart failure, unspecified; F17.210 Nicotine dependence, cigarettes, uncomplicated
CPT/HCPCS: 93005; 85025; 80048; 36415; 83735; 85610; 80076; 84484; 83880; 71045; 96374; 99285; J1940

== ENCOUNTER 2021-02-09 10:38 | Emergency (ER) | payer BC ==
--- OUTSIDE RECORDS SUMMARY | 2021-02-09 10:48 | XMS REPORT | Continuity of Care Document ---
:1970 Author Organization [facility] t Address [address] [place] [address] Care Team Providers Name Role Phone Maranda RUSSELL, Wondiful A Primary Care Physician [phone] [place] Attending Clinician Avril GUZMAN Attending Clinician Unavailable Maranda RUSSELL, A Attending Clinician Doctor Unassigned, Name Attending Clinician Unavailable RED Attending Clinician Unavailable Jonny GUTIERREZ Attending Clinician Unavailable Payers Payer Name Policy Type Policy Number Effective Date Expiration Date S ource Problems Condition Condition Condition Status Onset Resolution Last Treating Co mments Source Name Details Category Date Date Treatment Clinician Date Morbid Morbid Disease Active 2020-03 Univers obesity obesity 0-29 [place] mass index 00 Me dical (BMI) of (BMI) of Branch 40.0 or 40.0 or higher higher Essential Essential Disease Active 2020-03 Uni vers hypertensi hypertensi 0-29 it y of on on 00:00: [address] Branch Chronic Chronic Disease Active 2020-03 Univers cough cough 0-20 ity of 00:: [address] Branch Neuropathy Neuropathy Disease Active 2020-03 U nivers of both of both 0-20 ity of feet feet 00:00: [place] [id number] Medical Branch History of History of Disease Active 0 U nivers COVID-19 COVID-19 9-01 ity of 00:00: [place] 00 Medical Branch Hypothyroi Hypothyroi Disease Active Overview : Univers dism dism 11-21 Formattin ity of 00:00: g of this [place] 00 note Medical might be Branch different from the original. ICD10 Diagnosis Term Collections Professional Utility Vitamin Vitamin Disease Active Univers B12 B12 09-21 [place] deficiency [place] Vitamin D Vitamin D Disease Active Uni vers deficiency deficiency 09-21 it y of 00:00: [place] [facility] Other Other Disease Active Univers malaise malaise 09-11 ity of and and 00:00: [place] fatigue fatigue 00 Medical Branch Hair loss Hair loss Disease Active Uni vers 09-11 ity of 00:00: [place] [facility] Chronic Chronic Disease Active Univers fatigue fatigue 09-11 ity of 00:00: [place] 00 Medical Branch Irregular Irregular Disease Active Uni vers menstrual menstrual 09-11 ity of cycle cycle 00:00: [place] 00 Medical Branch Pseudotumo Pseudotumo Disease Active Overview : Univers r cerebri r cerebri 09-11 Formattin i ty of syndrome syndrome 00:00: g of this [place] as 00 note Medical might be Branch different from the original. 2002 Allergies, Adverse Reactions, Alerts Allergy Allergy Status Severity Reaction(s) Onset Inactive Treating Comm ents Source Name Type Date Date Clinician MORPHINE DRUG Active N/V Univers INGREDI 09-11 ity of 00:00: [place] 00 Medical Branch PENICILL Drug Active Swelling Univer s INS Class 09-11 ity of 00:00: [place] [facility] Morphine Propensi Active Swelling Univ ers ty to 09-11 ity of adverse 00:00: [place] reaction 00 Medical s Branch Penicill Propensi Active Unknown - Throat Uni vers ins ty to See comments 09-11 closes ity of adverse 00:00: [place] reaction Medical s Branch Social History Social Habit Start Date Stop Date Quantity Comments Source Exposure to Not sure University of SARS-CoV-2 (event) [facility] Alcohol intake 2021-01-11 2021-01-11 Current University of 00:00:00 00:00:00 non-drinker of [facility] alcohol Branch (finding) Cigarette 2021-01-02 2021-01-02 University of pack-years 00:00:00 00:00:00 [facility] Tobacco use and 2021-01-02 2021-01-02 Never used Universit y of exposure 00:00:00 00:00:00 [facility] Cigarettes smoked 2021-01-02 2021-01-02 Univers ity of current (pack per 00:00:00 00:00:00 [facility] ) - Reported Branch Sex Ass[birth year] At [birth year] Universit y of 00:00:00 00:00:00 [facility] Smoking Status Start Date Stop Date Source Current every day smoker Univers ity of [facility] Medications Ordered Filled Start Stop Current Ordering Indication Dosage Frequency Signature Comments Components Source Medication Medication Date Date Medication? Clinician (SIG) Name Name triamterene 2020-03 Yes [id number] 1{capsu Take 1 Univers -hydrochlor 0-20 le} capsule by it y of othiazide 00:00: mouth [place] (DYAZIDE) 00 every Medical 37.5-25 mg morning. Branc h per capsule triamterene 2020-03 Yes [id number] 1{capsu Take 1 Univers -hydrochlor 0-20 le} capsule by it y of othiazide 00:00: mouth [place] (DYAZIDE) 00 every Medical 37.5-25 mg morning. Branc h per capsule triamterene 2020-03 Yes [id number] 1{capsu Take 1 Univers -hydrochlor 0-20 le} capsule by it y of othiazide 00:00: mouth [place] (DYAZIDE) 00 every Medical 37.5-25 mg morning. Branc h per capsule triamterene 2020-03 Yes [id number] 1{capsu Take 1 Univers -hydrochlor 0-20 le} capsule by it y of othiazide 00:00: mouth [place] (DYAZIDE) 00 every Medical 37.5-25 mg morning. Branc h per capsule ergocalcife Yes [id number] Take 1 Cap Univers rol 9-08 by mouth. ity of (vitamin 00:00: Take TWICE [place] d2) 00 a WEEK Medical (CALCIFEROL (take on Bran ch ) 50,000 Mondays unit and capsule ) levothyroxi Yes 88ug Take 1 Tab Univers ne 9-08 by mouth ity of (SYNTHROID) 00:00[place]. [place] 88 mcg 00 Medical tablet Branch metFORMIN Yes 500mg Take 1 Tab U nivers (GLUCOPHAGE 11-21 by mouth 2 it y of ) 500 mg 00:00: (two) [place] tablet 00 times Medical daily with Branch meals. cyanocobala Yes [id number] by U nivers min 11-21 Intramuscu ity of (VITAMIN 00:00: lar route [place] B12) 1,000 00 once now. Medi luis mcg/mL Use 1mL Branch injection once a day for one week, then once a WEEK for 4 weeks, then once a month.Plea se include injection supplies ergocalcife 2020- No [id number] Take 1 Cap Univers rol 11-21 by mouth. ity of (vitamin 00:00[place] 00:00 [place] d2) 00 :00 a WEEK Medical (CALCIFEROL (take on Bran ch ) 50,000 Mondays unit and capsule ) levothyroxi 2020- No 88ug Take 1 Tab Univers ne 11-21 by mouth ity of (SYNTHROID) 00:00: 00:00 daily. [place] 88 mcg 00 :00 Medical tablet Branch metFORMIN 2020- No 500mg Take 1 Tab Univers (GLUCOPHAGE 11-21 by mouth 2 i ty of ) 500 mg 00:00: 00:00 (two) [place] tablet 00 :00 times Medical daily with Branch meals. cyanocobala 2020- No [id number] by Univers min 11-21 Intramuscu ity of (VITAMIN 00:00: 00:00 lar route [place] B12) 1,000 00 :00 once now. Medi luis mcg/mL Use 1mL Branch injection once a day for one week, then once a WEEK for 4 weeks, then once a month.Plea se include injection supplies Vital Signs Vital Name Observation Time Observation Value Comments Source Systolic blood 2021-01-02 14:29:00 153 mm[Hg] Univer sity [facility] [place] Diastolic blood 2021-01-02 14:29:00 80 mm[Hg] Unive [facility] Heart rate 2021-01-02 14:29:00 101 /min Universi ty [facility] Body height 2021-01-02 14:28:00 182.9 cm [facility] Body weight 2021-01-02 14:28:00 147.419 kg [facility] BMI 2021-01-02 14:28:00 44.08 kg/m2 [facility] Oxygen saturation 2021-01-02 14:28:00 97 /min [facility] in Arterial blood Medical Br anch by Pulse oximetry Procedures Procedure Date / Time Performed Performing Clinician Sour e EKG-12 LEAD 2021-01-02 15:10:51 Mag Gutierrez [facility] ASSIGNMENT OF BENEFITS 2021-01-02 14:13:41 Doctor Unassigned, No [facility] Name [facility] Branch Encounters Start End Encounter Admission Attending Care Care Encounter Source Date/Time Date/Time Type Type Clinicians Facility Department ID 2021-01-21 2021-01-21 Letter Cesar [facility] AT [id number] Univers 00:00:00 00:00:00 (Out) [facility] [id number] [id number] 980.1 [facility] 2021-01-17 2021-01-17 Outpatient R MEGAN [facility] [id number] Univers 14:30:00 14:30:[address] [facility] 2021-01-17 2021-01-17 Outpatient Eve GUZMAN [facility] [id number] Univers 14:30:00 14:30:00 SENDIL [id number] ity [facility] 2021-01-16 2021-01-16 Case Maranda [facility] [id number] Univers 00:00:00 00:00:00 Management Mag Fuller HEALTH [id number] ity of [place] [id number] [place] as ARON?BLEA [phone] Oh eliz [address] MEDICAL OFFICE BUILDING 2021-01-16 2021-01-16 Patient Doctor [facility] [id number] Univers 00:00:00 00:00:00 Secure Msg Unassigned, HEALTH [id number] ity of [place] CLEAR [id number] [place] ALBA [id number] [facility] 085 Branch OFFICE BUILDING 2021-01-15 2021-01-15 Outpatient R RED [facility] [id number] Univers 10:45:00 10:45:[address] [facility] 2021-01-15 2021-01-15 Outpatient R RED [facility] [id number] Univers 10:45:00 10:45:[id number] [facility] 2021-01-02 2021-01-02 [facility] [id number] Univers 09:16:49 10:23:55 Visit Wonful A HEALTH [id number] ity of [place] [id number] [place] as ARON?BLEA [id number] Oh eliz [address] MEDICAL OFFICE BUILDING 2021-01-02 2021-01-02 Outpatient MARANDA [facility] [id number] Univers 10:00:00 10:00:00 WONDIFUL [id number] ity o f [facility] 2021-01-02 2021-01-02 [facility] [id number] Univers 09:00:00 09:00:00 WONDIFUL ity o f [facility] 2021-01-02 2021-01-02 Orders Doctor MAYER [id number] Univers 00:00:00 00:00:00 Only Unassigned, JAY [id number] ity of [place] [facility] [id number] [place] as [phone] [facility] 009 Branch Results This patient has no known results.
[2021-02-09] MEDS ORDERED: HYDROCODONE/APAP 10/325 TAB ONE (11:43)
--- NOTE | 2021-02-09 12:24 | RAD REPORT ---
EXAM DESCRIPTION: RAD - Foot Left 3 View - 02/09/2021 12:13 pm CLINICAL HISTORY: PAIN COMPARISON: No comparisonsNo comparisons FINDINGS: No acute fracture. No malalignment. Calcaneal spurring. Midfoot degenerative changes. IMPRESSION: No acute osseous abnormality involving the left foot.
--- NOTE | 2021-02-09 12:28 | EDPHYS ---
Physician Documentation [facility] Name: Kaitlin Browning Age: 50 yrs Sex: Female : 1970 Arrival Date: 02/09/2021 Time: 10:57 Bed 9 Private MD: ED Physician Epifanio Flaherty HPI: 02/09 11:23 This 50 yrs old Female presents to ER via Ambulatory with complaints of Foot Pain. pm1 11:23 The patient presents with pain, that is acute. The complaints affect the heel of left pm1 foot. Context: The problem was sustained at an unknown site, resulted from an unknown cause, the patient can partially bear weight, the patient is able to ambulate, with mild difficulty, Walking on the side of her left foot. Onset: The symptoms/episode began/occurred 2 week(s) ago. Modifying factors: The symptoms are alleviated by elevating leg, the symptoms are aggravated by weight bearing. Associated signs and symptoms: Pertinent negatives calf tenderness, numbness, swelling, tingling. Treatment prior to arrival includes: no previous treatment. Severity of symptoms: in the emergency department the symptoms are unchanged. The patient has not experienced similar symptoms in the past. The patient has not recently seen a physician. Historical: - Allergies: 11:25 Morphine; iw 11:25 pcn; iw - PMHx: 11:25 CHF; HTN; iw ROS: 11:23 Constitutional: Negative for fever, chills, and weight loss. pm1 11:23 Cardiovascular: Negative for chest pain, palpitations, and edema, Respiratory: Negative for shortness of breath, cough, wheezing, and pleuritic chest pain. 11:23 Skin: Negative for injury, rash, and discoloration, Neuro: Negative for headache, weakness, numbness, tingling, and seizure. 11:23 MS/extremity: Positive for pain, of the heel of left foot, Negative for decreased range of motion, deformity. 11:23 All other systems are negative. Exam: 11:23 Constitutional: This is a well developed, well nourished patient who is awake, alert, pm1 and in no acute distress. Head/Face: Normocephalic, atraumatic. 11:23 Skin: Warm, dry with normal turgor. Normal color with no rashes, no lesions, and no evidence of cellulitis. 11:23 Cardiovascular: Exam negative for acute changes, Rate: normal, Rhythm: regular, Pulses: no pulse deficits are appreciated. 11:23 Respiratory: Exam negative for acute changes, respiratory distress, shortness of breath, Breath sounds: are clear throughout. 11:23 Musculoskeletal/extremity: Extremities: grossly normal except: noted in the heel of left foot: tenderness, There is no evidence of erythema, swelling, the left foot Sensation intact. 11:23 Neuro: Exam negative for acute changes, Orientation: is normal, Mentation: is normal, Motor: is normal, moves all fours. Vital Signs: 11:16 BP 141 / 68; Pulse 69; Resp 18; Temp 98.2; Pulse Ox 100% on R/A; Weight 109.77 kg; iw Height 5 ft. 7 in. (170.18 cm); 11:17 BP 141 / 68; Pulse 69; Resp 18; Temp 98.; Pulse Ox 100% ; Weight 109.77 kg; Height 5 iw ft. 7 in. (170.18 cm); Pain 9/10; 11:17 Body Mass Index 37.90 (109.77 kg, 170.18 cm) iw MDM: 11:14 Patient medically screened. [facility] 12:26 Data reviewed: vital signs. Data interpreted: Pulse oximetry: on room air is 100 %. pm1 Interpretation: normal. Counseling: I had a detailed discussion with the patient and/or guardian regarding: the historical points, exam findings, and any diagnostic results supporting the discharge/admit diagnosis, radiology results, the need for outpatient follow up, a race starter, to return to the emergency department if symptoms worsen or persist or if there are any questions or concerns that arise at home. 12:28 ED course: [place] reviewed. pm1 02/09 11:23 Order name: Foot Left 3 View XRAY; Complete Time: 12:25 pm1 Administered Medications: 12:02 Drug: [place] (HYDROcodone-acetaminophen) 10 mg-325 mg 1 tabs Route: PO; iw 12:15 Follow up: Response: No adverse reaction iw Disposition: 02/10 09:21 Co-signature as Attending Physician, Epifanio Flaherty MD I agree with the assessment and dimitry plan of care. Disposition Summary: 02/09/21 12:27 Discharge Ordered Location: Home pm1 Problem: new pm1 Symptoms: have improved pm1 Condition: Stable pm1 Diagnosis - Calcaneal spur, left foot pm1 Followup: pm1 - With: Emergency Department - When: As needed - Reason: Worsening of condition Followup: pm1 - With: Private Physician - When: 2 - 3 days - Reason: Recheck today's complaints, Continuance of care, Re-evaluation by your physician Discharge Instructions: - Discharge Summary Sheet pm1 - Heel Spur pm1 Forms: - Medication Reconciliation Form pm1 - Work release form pm1 - Thank You Letter pm1 - Antibiotic Education pm1 - Prescription Opioid Use pm1 Prescriptions: - acetaminophen-codeine 300-15 mg Oral tablet - take 2 tablet by ORAL route every 6 hours As needed as needed; 20 tablet; pm1 Refills: 0, Product Selection Permitted Signatures: Dispatcher [employer] EDEpifanio Busch MD MD cha Williams, Irene RN RN Quinton Headley, NIYA KNIFE GLAZER pm1
--- NOTE | 2021-02-09 12:28 | ER ---
Nurse's Notes [facility] Name: Kaitlin Browning Age: 50 yrs Sex: Female : 1970 Arrival Date: 02/09/2021 Time: 10:57 Bed 9 Private MD: Diagnosis: Calcaneal spur, left foot Presentation: 02/09 11:17 Chief complaint: Patient states: PT STATED LEFT HEEL PAIN LAST 2 WEEKS PAIN LEVEL ABOUT iw 9. Onset of symptoms. 11:17 Method Of Arrival: Ambulatory iw 11:17 Acuity: PERRY 4 iw 11:25 Coronavirus screen: At this time, the client does not indicate any symptoms associated iw with coronavirus-19. Ebola Screen: Patient negative for fever greater than or equal to 101.5 degrees Fahrenheit, and additional compatible Ebola Virus Disease symptoms Patient denies exposure to infectious person. Patient denies travel to an Ebola-affected area in the 21 days before illness onset. No symptoms or risks identified at this time. Initial Sepsis Screen: Does the patient meet any 2 criteria? No. Patient's initial sepsis screen is negative. Does the patient have a suspected source of infection? No. Patient's initial sepsis screen is negative. Risk Assessment: Do you want to hurt yourself or someone else? Patient reports no desire to harm self or others. Triage Assessment: 12:50 General: Appears in no apparent distress. Behavior is calm, cooperative. iw Historical: - Allergies: 11:25 Morphine; iw 11:25 pcn; iw - PMHx: 11:25 CHF; HTN; iw Screenin:51 Abuse screen: Denies threats or abuse. Denies injuries from another. Nutritional iw screening: No deficits noted. Tuberculosis screening: No symptoms or risk factors identified. Fall Risk None identified. Assessment: 12:00 General: Appears in no apparent distress. comfortable, Behavior is calm, cooperative. iw Pain: Complains of pain in left foot and heel of left foot. Neuro: Level of Consciousness is awake, alert, obeys commands, Oriented to person, place, time, situation. Cardiovascular: Patient's skin is warm and dry. Respiratory: Respiratory effort is even, unlabored, Respiratory pattern is regular. Derm: Skin is intact, is healthy with good turgor. Musculoskeletal: Range of motion: intact in all extremities. Vital Signs: 11:16 BP 141 / 68; Pulse 69; Resp 18; Temp 98.2; Pulse Ox 100% on R/A; Weight 109.77 kg; iw Height 5 ft. 7 in. (170.18 cm); 11:17 BP 141 / 68; Pulse 69; Resp 18; Temp 98.; Pulse Ox 100% ; Weight 109.77 kg; Height 5 iw ft. 7 in. (170.18 cm); Pain 9/10; 11:17 Body Mass Index 37.90 (109.77 kg, 170.18 cm) iw ED Course: 10:57 Patient arrived in ED. mr 11:12 Quinton Black NP is PHCP. pm1 11:12 Epifanio Flaherty MD is Attending Physician. pm1 11:19 Triage completed. iw 11:25 Alessandra Yi RN is Primary Nurse. iw 12:12 Foot Left 3 View XRAY In Process Unspecified. EDMS 12:50 No provider procedures requiring assistance completed. iw 20:13 Patient did not have IV access during this emergency room visit. iw Administered Medications: 12:02 Drug: [place] (HYDROcodone-acetaminophen) 10 mg-325 mg 1 tabs Route: PO; iw 12:15 Follow up: Response: No adverse reaction iw Outcome: 12:27 Discharge ordered by MD. pm1 12:51 Patient left the ED. iw Signatures: Dispatcher [employer] Neda Beckman mr Alessandra Yi, ULISES RN iw Quinton Black NP DISHWASHER pm1 Corrections: (The following items were deleted from the chart) 11:25 11:17 Chief complaint: Patient states: PT STATED LEFT PAIN LAST 2WEEKS PAIN LEVEL ABOUT iw 9 iw
[2021-02-09 12:57] VITALS: BP 141/68; O2SAT 100
[2021-02-09 12:59] VITALS: TEMP 98
== END 2021-02-09 12:51 | disposition home or self-care (01) ==
LOC: ER 10:38
DX: M77.32 Calcaneal spur, left foot (principal); I10 Essential (primary) hypertension; I50.9 Heart failure, unspecified; Z88.0 Allergy status to penicillin; Z88.5 Allergy status to narcotic agent
CPT/HCPCS: 99283

== ENCOUNTER 2021-08-28 12:36 | Emergency (ER) | payer BC, SELFPAY ==
--- OUTSIDE RECORDS SUMMARY | 2021-08-28 12:39 | XMS REPORT | Continuity of Care Document ---
:1970 Author Organization [facility] t Address [address] [place] [address] Care Team Providers Name Role Phone Maranda RUSSELL, Wondiful A Primary Care Physician [phone] [place] Attending Clinician Avril GUZMAN Attending Clinician Unavailable [...] 0-29 it y of on on 00:00: [address] Branch Chronic Chronic Disease Active 2020-03 Univers cough cough 0-20 ity of 00:: [address] Branch Neuropathy Neuropathy Disease Active 2020-03 U nivers of both of both 0-20 ity of feet feet 00:00: [place] [id number] Medical Branch History of History of Disease Active 0 U nivers COVID-19 COVID-19 9-01 ity of 00:00: [place] 00 Medical Branch Hypothyroi Hypothyroi Disease Active Overview : Univers dism dism 11-21 Formattin ity of 00:00: g of this [place] note Medical might be Branch different from the original. 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 Vitamin Vitamin Disease Active Univers B12 B12 09-21 [place] [facility] [place] Vitamin D Vitamin D Disease Active Uni vers deficiency deficiency 09-21 it y of 00:00: [place] 00 Medical Branch Chronic Chronic Disease Active Univers fatigue fatigue 09-11 ity of 00:00: [place] [facility] Irregular Irregular Disease Active Uni vers menstrual menstrual 09-11 ity of cycle cycle 00:00: [place] [facility] Pseudotumo Pseudotumo Disease Active Overview [...] Univers INGREDI 09-11 ity of 00:00: [place] [facility] PENICILL Drug Active Swelling Univer s INS Class 09-11 ity of 00:00: [place] [facility] Morphine Propensi Active Swelling Univ ers ty to 09-11 ity of adverse 00:00: [place] reaction Medical s Branch Penicill Propensi Active Unknown - Throat Uni vers ins ty to See comments 09-11 closes ity of adverse 00:00: [place] reaction 00 Medical s Branch Social History Social Habit Start Date Stop Date Quantity Comments Source Exposure to Not sure [place] of SARS-CoV-2 (event) [facility] Alcohol intake 2021-01-11 2021-01-11 Current University of 00:00:00 00:00:00 non-drinker of [facility] alcohol Branch (finding) Cigarettes smoked 2021-01-02 2021-01-02 Univers ity of current (pack per 00:00:00 00:00:00 [place] ) - Reported Branch Cigarette 2021-01-02 2021-01-02 University of pack-years 00:00:00 00:00:00 [facility] Tobacco use and 2021-01-02 2021-01-02 Never used Universit y of exposure 00:00:00 00:00:00 [facility] Sex Ass[birth year] At [birth year] Universit y of 00:00:00 00:00:00 [facility] Smoking Status Start Date Stop Date Source Current every day smoker 2021-01-02 00:00:00 Uni versity [facility] Medications Ordered Filled Start Stop Current Ordering Indication Dosage Frequency Signature Comments Components Source Medication Medication Date Date Medication? Clinician (SIG) Name Name triamterene 2020-03 Yes [id number] 1{capsu Take 1 Univers -hydrochlor 0-20 le} capsule by it y of othiazide 00:00: mouth [place] (DYAZIDE) 00 every Medical 37.5-25 mg morning. Branc h per capsule triamterene 2020-03 Yes [id number] 1{capsu Take 1 Univers -hydrochlor 0-20 le} capsule by it y of othiazide 00:00: mouth [place] (DYAZIDE) 00 every Medical 37.5-25 mg morning. Branc h per capsule triamterene 2020-03 Yes [id number] 1{capsu Take 1 Univers -hydrochlor 0-20 le} capsule by it y of othiazide 00:00: mouth [place] (DYAZIDE) 00 every Medical 37.5-25 mg morning. Branc h per capsule triamterene 2020-03 Yes [id number] 1{capsu Take 1 Univers -hydrochlor 0-20 le} capsule by it y of othiazide 00:00: mouth [place] (DYAZIDE) 00 every Medical 37.5-25 mg morning. Branc h per capsule ergocalcife 2020- No [id number] Take 1 Cap Univers rol 11-21 by mouth. ity of (vitamin 00:00[place] 00:00 [place] d2) 00 :00 a WEEK Medical (CALCIFEROL (take on Bran ch ) 50,000 Mondays unit and capsule ) levothyroxi 2020- No 88ug Take 1 Tab Univers ne 11-21 by mouth ity of (SYNTHROID) 00:00: 00:00 daily. Manuel as 88 mcg 00 :00 [facility] Branch metFORMIN 2020- No 500mg Take 1 Tab Univers (GLUCOPHAGE 11-21 by mouth 2 i ty of ) 500 mg 00:00: 00:00 (two) [place] tablet 00 :00 times Medical daily with Branch meals. cyanocobala 2020- No [id number] by Univers min 11-21 Intramuscu ity of [...] Source Systolic blood 2021-01-02 14:29:00 153 mm[Hg] [facility] pressure [facility] Diastolic blood 2021-01-02 14:29:00 80 mm[Hg] [facility] 2021-01-02 14:29:00 101 /min [facility] Body height 2021-01-02 14:28:00 182.9 cm [facility] Body weight 2021-01-02 14:28:00 147.419 kg [facility] BMI 2021-01-02 14:28:00 44.08 kg/m2 [facility] Oxygen saturation 2021-01-02 14:28:00 97 /min [facility] in Arterial blood Medical Br anch by Pulse oximetry Procedures Procedure Date / Time Performed Performing Clinician Sourc e EKG-12 LEAD 2021-01-02 15:10:51 Mag Gutierrez [facility] Encounters Start End Encounter Admission Attending Care Care Encounter Source Date/Time Date/Time Type Type Clinicians Facility Department ID 2021-01-21 2021-01-21 [facility] [id number] Univers 00:00:00 00:00:00 (Out) [facility] CHUCKY [id number] ity of [id number] Claudia s 980.1 Medical Branch 2021-01-17 2021-01-17 Outpatient R MEGAN [facility] [id number] Univers 14:30:00 14:30:00 SENDIL ity [facility] 2021-01-17 2021-01-17 Outpatient R MEGAN [facility] [id number] Univers 14:30:00 14:30:00 SENDIL [id number] [facility] 2021-01-16 2021-01-16 [facility] [id number] Univers 00:00:00 00:00:00 Management Wondiful A HEALTH [id number] ity of [place] [id number] Manuel as ARON?BLEA [id number] [address] MEDICAL OFFICE BUILDING 2021-01-16 2021-01-16 Patient Doctor [facility] [id number] Univers 00:00:00 00:00:00 Secure Msg Unassigned, HEALTH [id number] ity of [id number] [place] [id number] [facility] [address] OFF[address] [facility] 2021-01-15 2021-01-15 Outpatient Eve MOON [facility] [id number] Univers 10:45:00 10:45:00 KANNAN [facility] 2021-01-15 2021-01-15 Outpatient Eve MOON [facility] [id number] Univers 10:45:00 10:45:00 KANNAN [id number] [facility] 2021-01-02 2021-01-02 Office [facility] [id number] Univers 09:16:49 10:23:55 Visit Wondiful A HEALTH [id number] ity of [facility] [id number] [place] as ARON?BLEA [id number] [place] [address] MEDICAL OFFICE [facility] 2021-01-02 2021-01-02 [facility] [id number] Univers 10:00:00 10:00:00 WONDIFUL [id number] ity o f [facility] 2021-01-02 2021-01-02 Outpatient R MARANDA [facility] [id number] Univers 09:00:00 09:00:00 WONDIFUL ity o f [facility] Results This patient has no known results.
--- NOTE | 2021-08-28 14:12 | RAD REPORT ---
EXAM DESCRIPTION: RAD - Chest Single View - 08/28/2021 2:06 pm CLINICAL HISTORY: CHEST PAIN COMPARISON: Chest Single View dated 08/13/2020; Chest Single View dated 12/13/2019; Chest Single View dated 07/23/2019 FINDINGS: Lines: None. Lungs: No evidence of edema or pneumonia. Pleural: No significant pleural effusions or pneumothorax. Cardiac: The heart size is within normal limits. Bones: No acute fractures. Other: IMPRESSION: No acute cardiopulmonary disease.
[2021-08-28] MEDS ORDERED: MECLIZINE HCL 12.5 MG TAB ONE (15:03)
[2021-08-28 15:04] LABS: Absolute Lymphocytes (CBC) 0.3 K/uL (0.7-4.9); Hematocrit 40.8 % (36.0-45.0); Lymphocytes % 3.8 % (15.3-44.8); MPV 8.8 fL (7.6-11.3); Protime INR 1.04; RBC Red Blood Cell Count 4.62 M/uL (3.86-4.86)
[2021-08-28 15:15] LABS: ALT/SGPT 29 U/L (12-78); AST/SGOT 17 U/L (15-37); Albumin 3.5 g/dL (3.4-5.0); Alkaline Phosphatase 72 U/L (45-117); BUN Blood Urea Nitrogen 12 mg/dL (7-18); Bicarbonate 25 mmol/L (21-32); Bilirubin Total 0.2 mg/dL (0.2-1.0); Glomerular Filtration Rate 80 ml/min (=/>90); Glucose Level 90 mg/dL (74-106); Magnesium 1.8 mg/dL (1.8-2.4); NT PRO-BNP 123 pg/mL (<125); Potassium 4.5 mmol/L (3.5-5.1); Protein, Total 7.6 g/dL (6.4-8.2); Sodium Level 135 mmol/L (136-145); Troponin High Sensitivity 3.5 pg/mL (<58.9)
--- NOTE | 2021-08-28 15:15 | RAD REPORT ---
EXAM DESCRIPTION: CT - Head Brain Wo Cont - 08/28/2021 3:04 pm CLINICAL HISTORY: Dizziness, non-specific COMPARISON: No comparisons TECHNIQUE: All CT scans are performed using dose optimization technique as appropriate and may inclu de automated exposure control or mA/KV adjustment according to patient size. FINDINGS: No intracranial hemorrhage, hydrocephalus or extra-axial fluid collection.No areas of brai n edema or evidence of midline shift. The paranasal sinuses and mastoids are clear. The calvarium is intact. IMPRESSION: No acute intracranial abnormality.
[2021-08-28 15:21] LABS: Bilirubin Direct < 0.1 mg/dL (0-0.2)
--- NOTE | 2021-08-28 16:19 | EDPHYS ---
Physician Documentation [facility] Name: Kaitlin Browning Age: 51 yrs Sex: Female : 1970 Arrival Date: 08/28/2021 Time: 12:39 Bed 15 Private MD: ED Physician Landen Carrero HPI: 08/28 13:45 This 51 yrs old Female presents to ER via Ambulatory with complaints of dizziness. pm1 13:45 The patient presents with dizziness. Onset: The symptoms/episode began/occurred this pm1 morning, at 10:00. Context: occurred at home, occurred while the patient was Getting ready for work. just prior to the episode the patient experienced no apparent symptoms. Modifying factors: the symptoms are aggravated by movement of head. Associated signs and symptoms: Pertinent negatives: abdominal pain, chest pain, shortness of breath. Severity of symptoms: in the emergency department the symptoms are unchanged. The patient has not experienced similar symptoms in the past. The patient has not recently seen a physician. 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 - Social history:: Smoking status: . ROS: 13:45 Constitutional: Negative for fever, chills, and weight loss, Cardiovascular: Negative pm1 for chest pain, palpitations, and edema, Respiratory: Negative for shortness of breath, cough, wheezing, and pleuritic chest pain, Abdomen/GI: Negative for abdominal pain, nausea, vomiting, diarrhea, and constipation, Back: Negative for injury and pain, MS/Extremity: Negative for injury and deformity, Skin: Negative for injury, rash, and discoloration. 13:45 Neuro: Positive for dizziness, headache. 13:45 All other systems are negative. Exam: 13:45 Constitutional: This is a well developed, well nourished patient who is awake, alert, pm1 and in no acute distress. Head/Face: Normocephalic, atraumatic. 13:45 Back: No spinal tenderness. No costovertebral tenderness. Full range of motion. Skin: Warm, dry with normal turgor. Normal color with no rashes, no lesions, and no evidence of cellulitis. MS/ Extremity: Pulses equal, no cyanosis. Neurovascular intact. Full, normal range of motion. 13:45 Eyes: Nystagmus: horizontal with right oliver gaze. 13:45 ENT: 13:45 Cardiovascular: Exam negative for acute changes, Rate: normal, Rhythm: regular, Pulses: no pulse deficits are appreciated, Heart sounds: normal, Edema: is not appreciated. 13:45 Respiratory: Exam negative for acute changes, respiratory distress, shortness of breath. 13:45 Abdomen/GI: Exam negative for acute changes, Inspection: abdomen appears normal, Palpation: abdomen is soft and non-tender. 13:45 Neuro: Exam negative for acute changes, Orientation: is normal, Mentation: is normal, Cranial nerves: CN II- XII are normal as tested, Cerebellar function: normal finger to nose testing, Motor: moves all fours, strength is 5/5 in all extremities. Vital Signs: 13:08 BP 171 / 73; Pulse 99; Resp 17; Temp 99.2(TE); Pulse Ox 99% on R/A; Weight 145.15 kg tw2 (R); Height 6 ft. 0 in. (182.88 cm); Pain 9/10; 14:45 BP 151 / 72; Pulse 88; Resp 18; ww 15:30 BP 127 / 59; Pulse 87; Resp 18; Pulse Ox 95% ; ww 16:24 BP 128 / 68; Pulse 89; Resp 18; Pulse Ox 96% on R/A; ww 13:08 Body Mass Index 43.40 (145.15 kg, 182.88 cm) tw2 MDM: 14:25 Patient medically screened. pm1 16:17 Data reviewed: vital signs. Data interpreted: Pulse oximetry: on room air is 99 %. pm1 Interpretation: normal. Counseling: I had a detailed discussion with the patient and/or guardian regarding: the historical points, exam findings, and any diagnostic results supporting the discharge/admit diagnosis, lab results, radiology results, the need for outpatient follow up, a family practitioner, a neurologist, to return to the emergency department if symptoms worsen or persist or if there are any questions or concerns that arise at home. 08/28 13:45 Order name: Basic Metabolic Panel; Complete Time: 15:23 pm1 08/28 13:45 Order name: CBC with Diff; Complete Time: 15:23 pm1 08/28 13:45 Order name: LFT's; Complete Time: 15:23 pm1 08/28 13:45 Order name: Magnesium; Complete Time: 15:23 pm1 08/28 13:45 Order name: NT PRO-BNP; Complete Time: 15:23 pm1 08/28 13:45 Order name: PT-INR; Complete Time: 15:23 pm1 08/28 13:45 Order name: Troponin HS; Complete Time: 15:23 pm1 08/28 13:45 Order name: XRAY Chest (1 view); Complete Time: 14:26 pm1 08/28 13:45 Order name: EKG; Complete Time: 13:45 pm1 08/28 13:45 Order name: Cardiac monitoring; Complete Time: 14:58 pm1 08/28 13:45 Order name: EKG - Nurse/Tech; Complete Time: 14:58 pm08/28 13:45 Order name: IV Saline Lock; Complete Time: 14:45 pm08/28 14:39 Order name: CT Head Brain wo Cont; Complete Time: 15:23 pm1 08/28 13:45 Order name: Labs collected and sent; Complete Time: 14:45 pm1 08/28 13:45 Order name: O2 Per Protocol; Complete Time: 14:58 pm1 08/28 13:45 Order name: O2 Sat Monitoring; Complete Time: 14:58 pm1 Administered Medications: 15:21 Drug: Meclizine 50 mg Route: PO; Disposition: 17:10 Co-signature as Attending Physician, Landen Carrero MD I agree with the assessment and kdr plan of care. Disposition Summary: 08/28/21 16:18 Discharge Ordered Location: Home pm1 Problem: new pm1 Symptoms: have improved pm1 Condition: Stable pm1 Diagnosis - Benign paroxysmal vertigo pm1 Followup: pm1 - With: Emergency Department - When: As needed - Reason: Worsening of condition Followup: pm1 - With: Private Physician - When: 2 - 3 days - Reason: Recheck today's complaints, Continuance of care, Re-evaluation by your physician Discharge Instructions: - Discharge Summary Sheet pm1 - Benign Positional Vertigo pm1 Forms: - Medication Reconciliation Form pm1 - Thank You Letter pm1 - Antibiotic Education pm1 - Prescription Opioid Use pm1 - Work release form ww Prescriptions: - Meclizine 25 mg Oral Tablet - take 1 tablet by ORAL route every 8 hours As needed; 30 tablet; Refills: 0, pm1 Product Selection Permitted Signatures: Dispatcher [employer] Landen Carrillo MD MD kdr Marinas, Patrick, NP AIR AND WATER TESTER pm1 Domi Sears RN RN 2 Venessa Julien RN RN ww
--- NOTE | 2021-08-28 16:19 | ER ---
Nurse's Notes [facility] Name: Kaitlin Browning Age: 51 yrs Sex: Female : 1970 Arrival Date: 08/28/2021 Time: 12:39 Bed 15 Private MD: Diagnosis: Benign paroxysmal vertigo Presentation: 08/28 13:08 Chief complaint: Patient states: i was at work around 10 am i was getting ready for tw2 work and then i work i was really dizzy and my head hurting. i felt jitterry. vision a little blurred. Coronavirus screen: At this time, the client does not indicate any symptoms associated with coronavirus-19. Ebola Screen: Patient denies travel to an Ebola-affected area in the 21 days before illness onset. Initial Sepsis Screen: Does the patient meet any 2 criteria? HR > 90 bpm. No. Patient's initial sepsis screen is negative. Does the patient have a suspected source of infection? No. Patient's initial sepsis screen is negative. Risk Assessment: Do you want to hurt yourself or someone else? Patient reports no desire to harm self or others. Onset of symptoms was August 28, 2021. 13:08 Method Of Arrival: Ambulatory tw2 13:08 Acuity: PERRY 3 tw2 Triage Assessment: 13:11 General: Appears in no apparent distress. obese, well groomed, Behavior is calm, tw2 cooperative, appropriate for age. Pain: Denies pain. Neuro: Level of Consciousness is awake, alert, obeys commands, Reports dizziness. SYSTEMS MGR: 15:17 LMP N/A - tw2 Historical: - Allergies: 13:10 Morphine (Anaphylaxis); tw2 13:10 PENICILLINS (Anaphylaxis); tw2 - Home Meds: 13:10 None [Active]; tw2 - PMHx: 13:10 CHF; HTN; tw2 - PSHx: 13:10 section; tw2 - Immunization history:: Adult Immunizations. - Social history:: Smoking status: . Screenin:17 Abuse screen: Denies threats or abuse. Nutritional screening: No deficits noted. tw2 Tuberculosis screening: No symptoms or risk factors identified. Fall Risk None identified. Assessment: 14:50 General: Appears in no apparent distress. comfortable, Behavior is calm, cooperative. ww Neuro: Level of Consciousness is awake, alert, obeys commands, Oriented to person, place, time, situation, Adjunct Physical Education Instructor are equal bilaterally Moves all extremities. Reports dizziness. Cardiovascular: Capillary refill < 3 seconds Patient's skin is warm and dry. Rhythm is regular Chest pain is denied. Respiratory: Airway is patent Respiratory effort is even, unlabored, Respiratory pattern is regular, symmetrical. GI: No signs and/or symptoms were reported involving the gastrointestinal system. Abdomen is obese. Derm: No signs and/or symptoms reported regarding the dermatologic system. Skin is intact, is healthy with good turgor, Skin is pink, warm \T\ dry. 15:25 Reassessment: Patient appears in no apparent distress at this time. No changes from ww previously documented assessment. Patient and/or family updated on plan of care and expected duration. Pain level reassessed. Patient is alert, oriented x 3, equal unlabored respirations, skin warm/dry/pink. 16:23 Reassessment: Patient appears in no apparent distress at this time. No changes from ww previously documented assessment. Patient and/or family updated on plan of care and expected duration. Pain level reassessed. Patient is alert, oriented x 3, equal unlabored respirations, skin warm/dry/pink. Vital Signs: 13:08 BP 171 / 73; Pulse 99; Resp 17; Temp 99.2(TE); Pulse Ox 99% on R/A; Weight 145.15 kg tw2 (R); Height 6 ft. 0 in. (182.88 cm); Pain 9/10; 14:45 BP 151 / 72; Pulse 88; Resp 18; ww 15:30 BP 127 / 59; Pulse 87; Resp 18; Pulse Ox 95% ; ww 16:24 BP 128 / 68; Pulse 89; Resp 18; Pulse Ox 96% on R/A; ww 13:08 Body Mass Index 43.40 (145.15 kg, 182.88 cm) tw2 ED Course: 12:39 Patient arrived in ED. as 13:10 Triage completed. tw2 13:11 Arm band placed on. tw2 13:22 Quinton Black NP is PHCP. pm1 13:22 Landen Carrero MD is Attending Physician. pm1 14:07 XRAY Chest (1 view) In Process Unspecified. EDMS 14:25 Bed in low position. Call light in reach. tw2 14:31 Venessa Julien, RN is Primary Nurse. ww 14:45 Inserted saline lock: 20 gauge in right antecubital area, using aseptic technique. tp1 Blood collected. 15:05 CT Head Brain wo Cont In Process Unspecified. EDMS 16:45 No provider procedures requiring assistance completed. IV discontinued, intact, ww bleeding controlled, No redness/swelling at site. Pressure dressing applied. Administered Medications: 15:21 Drug: Meclizine 50 mg Route: PO; ww Medication: 15:17 VIS not applicable for this client. tw2 Outcome: 16:18 Discharge ordered by MD. pm1 16:46 Discharged to home ambulatory, with family. ww 16:46 Condition: stable 16:46 Discharge instructions given to patient, Instructed on discharge instructions, follow up and referral plans. medication usage, safety practices, Demonstrated understanding of instructions, follow-up care, medications, Prescriptions given X 1. 16:46 Patient left the ED. ww Signatures: Dispatcher [employer] EDAR Monse Velásquez Patrick, NIYA GREY GOODS EXAMINER pm1 Domi Sears, RN RN tw2 Chary Wallis tp1 Venessa Julien, RN RN ww
[2021-08-28 17:00] VITALS: TEMP 99.2
[2021-08-28 17:09] VITALS: BP 128/68; O2SAT 96
--- NOTE | 2021-08-28 19:15 | EKG ---
Test Date: 2021-08-28 Test Time: 14:51:54 Integrated Logistics Programs Director: CAMERON MEASUREMENT RESULTS: Intervals: Rate: 89 NM: 138 QRSD: 76 QT: 340 QTc: 413 [place]: P: 64 NM: 138 QRS: 38 T: 39 INTERPRETIVE STATEMENTS: Normal sinus rhythm Cannot rule out Anterior infarct, age undetermined Abnormal ECG Compared to ECG 08/13/2020 17:50:45 No significant changes Electronically Signed On 08-28-21 19:15:38 CDT by Kota Betancourt
== END 2021-08-28 16:46 | disposition home or self-care (01) ==
LOC: ER 12:36
DX: H81.10 Benign paroxysmal vertigo, unspecified ear (principal); Z88.0 Allergy status to penicillin; Z88.6 Allergy status to analgesic agent; I10 Essential (primary) hypertension; I50.9 Heart failure, unspecified
CPT/HCPCS: 36415; 70450; 71045; 80048; 80076; 83735; 83880; 84484; 85025; 85610; 93005; 99284; J8597

== ENCOUNTER 2022-02-19 09:35 | Emergency (ER) | payer SELFPAY ==
--- OUTSIDE RECORDS SUMMARY | 2022-02-19 09:38 | XMS REPORT | Continuity of Care Document ---
:1970 Author Organization [facility] t Address [address] [place] [address] Care Team Providers Name Role Phone Mag Gutierrez MD Primary Care Physician [phone] [facility] Attending Clinician BAILEE GUZMAN Attending Clinician Unavailable Mag Gutierrez MD Attending Clinician Doctor Unassigned, [place] Attending Clinician Unavailable KANNAN MOON Attending Clinician Unavailable MAG GUTIERREZ Attending Clinician Unavailable Payers Payer Name [...] hypertensi 0-29 it y of on on 00:: [address] Branch Chronic Chronic Disease Active 2020-03 Univers cough cough 0-20 ity of 00:00: [place] [address] Medical Branch Neuropathy Neuropathy Disease Active 2020-03 U nivers of both of both 0-20 ity of feet feet 00:00: [place] [address] Medical Branch History of History of Disease Active U nivers COVID-19 COVID-19 9-01 ity of 00:00: [place] 00 Medical Branch Hypothyroi Hypothyroi Disease Active Overview : Univers dism dism 11-21 Formattin ity of 00:00: g of this note Medical might be Branch different from the original. ICD10 Diagnosis Term Continuity Reader Utility Vitamin Vitamin Disease Active Univers B12 [...] Quantity Comments Source Exposure to Not sure [facility] SARS-CoV-2 (event) [facility] Alcohol intake 2021-01-11 2021-01-11 Current University of 00:00:00 00:00:00 non-drinker of [facility] alcohol Branch (finding) Cigarettes smoked 2021-01-02 2021-01-02 Univers ity of current (pack per 00:00:00 00:00:00 ) - Reported Branch Cigarette 2021-01-02 2021-01-02 University of pack-years 00:00:00 00:00:00 [facility] Tobacco use and 2021-01-02 2021-01-02 Never used Universit y of exposure 00:00:00 00:00:00 [facility] Sex Ass[birth year] At [birth year] Universit y of 00:00:00 00:00:00 [facility] Smoking Status Start Date Stop Date Source Current every day smoker 2021-01-02 00:00:00 Uni versity of [facility] Medications Ordered Filled Start Stop Current Ordering Indication Dosage Frequency Signature Comments Components Source Medication Medication Date Date Medication? Clinician (SIG) Name Name triamterene 2020-03 Yes [id number] 1{capsu Take 1 Univers -hydrochlor 0-20 le} capsule by it y of othiazide 00:00: mouth [place] (DYAZIDE) 00 every Medical 37.5-25 mg morning. Branc h per capsule triamterene 2020-03 Yes [id number] 1{capsu Take 1 Univers -hydrochlor 0-20 le} capsule by it y of othiazide 00:00: mouth [place] (DYAZIDE) 00 every Medical 37.5-25 mg morning. Branc h per capsule triamterene 2020-03 Yes [id number] 1{capsu Take 1 Univers -hydrochlor 0-20 le} capsule by it y of othiazide 00:00: mouth [place] (DYAZIDE) 00 every Medical 37.5-25 mg morning. Branc h per capsule triamterene 2020-03 Yes [id number] 1{capsu Take 1 Univers -hydrochlor 0-20 le} capsule by it y of othiazide 00:00: mouth [place] (DYAZIDE) 00 every Medical 37.5-25 mg morning. Branc h per capsule ergocalcife 2020- No [id number] Take 1 Cap Univers rol 11-21 10-20 by mouth. ity of (vitamin 00:00[place] 00:00 [place] TWICE [place] d2) 00 :00 a WEEK Medical (CALCIFEROL (take on Bran ch ) 50,000 Mondays unit and capsule ) levothyroxi 2020- No 88ug Take 1 Tab Univers ne 11-21-20 by mouth ity of (SYNTHROID) 00:00: 00:00 daily. [place] as 88 mcg 00 :00 [facility] metFORMIN 2020- No 500mg Take 1 Tab Univers (GLUCOPHAGE 11-21 by mouth 2 i ty of ) 500 mg 00:00: 00:00 (two) [place] tablet 00 :00 times Medical daily with Branch meals. cyanocobala 2020- No [id number] by Univers min 11-21 Intramuscu ity of [...] Source Systolic blood 2021-01-02 14:29:00 153 [facility]Hg[facility] pressure [facility] Diastolic blood 2021-01-02 14:29:00 80 mm[Hg] [facility] Heart rate 2021-01-02 14:29:00 101 /min [facility] Body height 2021-01-02 14:28:00 182.9 cm [facility] Body weight 2021-01-02 14:28:00 147.419 kg [facility] BMI 2021-01-02 14:28:00 44.08 kg/m2 [facility] Oxygen saturation 2021-01-02 14:28:00 97 /min [facility] in Arterial blood Medical Br anch by Pulse oximetry Procedures Procedure Date / Time Performed Performing Clinician Sourc e EKG-12 LEAD 2021-01-02 15:10:51 Mag Gutierrez [facility] Encounters Start End Encounter Admission Attending Care Care Encounter Source Date/Time Date/Time Type Type Clinicians Facility Department ID 2021-01-21 2021-01-21 [facility] [id number] Univers 00:00:00 00:00:00 (Out) [facility] CHUCKY [id number] [id number] 2021-01-17 2021-01-17 Outpatient R MEGAN [facility] [id number] Univers 14:30:00 14:30:00 [facility] 2021-01-17 2021-01-17 Outpatient R MEGAN [facility] [id number] Univers 14:30:00 14:30:00 SENDIL [id number] ity [facility] 2021-01-16 2021-01-16 [facility] [id number] Univers 00:00:00 00:00:00 Management Wondiful A HEALTH [id number] ity of [place] [id number] Manuel as ARON?BLEA [id number] In eliz [address] MEDICAL OFFICE BUILDING 2021-01-16 2021-01-16 Patient Doctor [facility] [id number] Univers 00:00:00 00:00:00 Secure Msg Unassigned, HEALTH [id number] ity of [place] [id number] [place] ALBA [id number] [facility] 085 Branch OFFICE BUILDING 2021-01-15 2021-01-15 Outpatient R RED [facility] [id number] Univers 10:45:00 10:45:00 [facility] 2021-01-15 2021-01-15 [facility] [id number] Univers 10:45:00 10:45:00 [facility]N [id number] [facility] 2021-01-02 2021-01-02 Office [facility] [id number] Univers 09:16:49 10:23:55 Visit Wondiful A HEALTH [id number] ity of [place] [id number] Manuel as ARON?BLEA [id number] In [place] OFFICE BUILDING 2021-01-02 2021-01-02 [facility] [id number] Univers 10:00:00 10:00:00 WONDIFUL [id number] ity o f [facility] 2021-01-02 2021-01-02 [facility] [id number] Univers 09:00:00 09:00:00 OSMANIDIJOANA perry [facility] Results This patient has no known results.
--- NOTE | 2022-02-19 11:08 | RAD REPORT ---
EXAM DESCRIPTION: RAD - Femur Left - 02/19/2022 10:49 am CLINICAL HISTORY: Left leg pain FINDINGS: No fracture is seen
--- NOTE | 2022-02-19 11:18 | ER ---
Nurse's Notes [facility] Name: Kaitlin Browning Age: 51 yrs Sex: Female : 1970 Arrival Date: 02/19/2022 Time: 09:39 Bed 6 Private MD: Diagnosis: Strain of other muscle(s) and tendon(s) at lower leg level, left leg, initial encounter-Hamstring Presentation: 02/19 09:40 Chief complaint: EMS states: client was in her laundry room doing laundry barefoot when kc6 she slipped on a tshirt and fell into a splitting position. no LOC, no blood thinners. Coronavirus screen: Vaccine status: Patient reports being unvaccinated. At this time, the client does not indicate any symptoms associated with coronavirus-19. Ebola Screen: No symptoms or risks identified at this time. Initial Sepsis Screen: Does the patient meet any 2 criteria? No. Patient's initial sepsis screen is negative. Does the patient have a suspected source of infection? No. Patient's initial sepsis screen is negative. Risk Assessment: Do you want to hurt yourself or someone else? Patient reports no desire to harm self or others. Onset of symptoms was February 19, 2022. 09:40 Method Of Arrival: EMS: [facility] kc6 09:40 Acuity: PERRY 3 kc6 Triage Assessment: 09:42 General: Appears in no apparent distress. comfortable, Behavior is calm, cooperative, kc6 appropriate for age. Pain: Complains of pain in left hamstring, posterior aspect of left knee and left calf Pain does not radiate. Pain currently is 8 out of 10 on a pain scale. Quality of pain is described as sharp, shooting, Pain began 1 hour ago. Is continuous, Alleviated by rest, Aggravated by increased activity, repositioning, weight bearing, Also complains of no other associated symptoms. EENT: No signs and/or symptoms were reported regarding the EENT system. Neuro: Barron Agitation-Sedation Scale (RASS): 0 - Alert and Calm Level of Consciousness is awake, alert, obeys commands, Oriented to person, place, time, situation, Appropriate for age. Cardiovascular: Heart tones S1 S2 present Capillary refill < 3 seconds. Cardiovascular: Respiratory: Airway is patent Trachea midline Respiratory effort is even, unlabored, Respiratory pattern is regular, symmetrical, Breath sounds are clear bilaterally. GI: No signs and/or symptoms were reported involving the gastrointestinal system. : No signs and/or symptoms were reported regarding the genitourinary system. Derm: No signs and/or symptoms reported regarding the dermatologic system. Skin is intact, Skin is pink, warm \T\ dry. Musculoskeletal: No signs and/or symptoms reported regarding the musculoskeletal system. Circulation, motion, and sensation intact. Capillary refill < 3 seconds, Range of motion: intact in all extremities. Historical: - Allergies: 09:43 Morphine (Anaphylaxis); kc6 09:43 PENICILLINS (Anaphylaxis); kc6 - Home Meds: :43 None [Active]; kc6 - PMHx: :43 HTN; CHF; kc6 - PSHx: :43 section; kc6 - Immunization history:: Client reports having NOT received the Covid vaccine. Flu vaccine is up to date. - Social history:: Smoking status: Patient reports the use of cigarette tobacco products, smokes one pack cigarettes per day. Patient/guardian denies using alcohol. - Family history:: not pertinent. - Hospitalizations: : No recent hospitalization is reported. Screenin: Abuse screen: Denies threats or abuse. Denies injuries from another. Nutritional kc6 screening: No deficits noted. Tuberculosis screening: No symptoms or risk factors identified. Fall Risk Fall in past 12 months (25 points). No secondary diagnosis (0 pts). No IV (0 pts). Ambulatory Aid- None/Bed Rest/Nurse Assist (0 pts). Gait- Normal/Bed Rest/Wheelchair (0 pts) Mental Status- Oriented to own ability (0 pts). Total Jett Fall Scale indicates Low Risk Score (25-44 pts). Fall prevention measures have been instituted. Side Rails Up X 2 Placed close to Nursing Station Frequent Obs/Assesments occuring Family Present and informed to notify staff if they need to leave bedside As available Patient and Family Educated on Fall Prevention Program and strategies. Assessment: :44 Reassessment: please see triage assessment. kc6 :44 Reassessment: Patient appears in no apparent distress at this time. No changes from kc6 previously documented assessment. Patient and/or family updated on plan of care and expected duration. Pain level reassessed. Patient is alert, oriented x 3, equal unlabored respirations, skin warm/dry/pink. 11:26 Reassessment: Patient appears in no apparent distress at this time. No changes from kc6 previously documented assessment. Patient and/or family updated on plan of care and expected duration. Pain level reassessed. Patient is alert, oriented x 3, equal unlabored respirations, skin warm/dry/pink. Vital Signs: 09:40 BP 158 / 71; Pulse 70; Resp 18 S; Temp 98.4(O); Pulse Ox 100% on R/A; Weight 131.54 kg kc6 (R); Height 6 ft. 0 in. (182.88 cm) (R); Pain 8/10; 10:49 BP 131 / 74; Pulse 54; Resp 18 S; Pulse Ox 100% on R/A; kc6 11:27 BP 129 / 62; Pulse 61; Resp 18 S; Pulse Ox 99% on R/A; kc6 09:40 Body Mass Index 39.33 (131.54 kg, 182.88 cm) kc6 ED Course: 09:39 Patient arrived in ED. kc6 09:39 Yaakov Mathew MD is Attending Physician. rn 09:40 Iliana Santos RN is Primary Nurse. kc6 09:42 Triage completed. kc6 09:45 Patient has correct armband on for positive identification. Placed in gown. Bed in low kc6 position. Call light in reach. Side rails up X2. 09:45 Arm band placed on. kc6 10:51 XRAY Femur LEFT In Process Unspecified. EDMS 11:36 No provider procedures requiring assistance completed. Patient did not have IV access kc6 during this emergency room visit. Administered Medications: No medications were administered Medication: 11:37 VIS not applicable for this client. kc6 Outcome: 11:18 Discharge ordered by . rn 11:36 Discharged to home via wheelchair. kc6 11:36 Condition: stable 11:36 Discharge instructions given to patient, Instructed on discharge instructions, Demonstrated understanding of instructions. 11:37 Patient left the ED. kc6 Signatures: Dispatcher [employer] EDMS Yaakov Mathew MD MD rn Iliana Santos RN RN kc6
--- NOTE | 2022-02-19 11:18 | EDPHYS ---
Physician Documentation [facility] Name: Kaitlin Browning Age: 51 yrs Sex: Female : 1970 Arrival Date: 02/19/2022 Time: 09:39 Bed 6 Private MD: ED Physician Yaakov Mathew HPI: 02/19 10:30 This 51 yrs old Female presents to ER via EMS with complaints of leg injury/pain. rn 10:30 The patient presents with an injury, pain. The complaints affect the left hamstring. rn Onset: The symptoms/episode began/occurred just prior to arrival. Modifying factors: The symptoms are alleviated by remaining still, the symptoms are aggravated by movement. Associated signs and symptoms: Pertinent negatives fever, numbness, swelling, weakness. Severity of symptoms: At their worst the symptoms were moderate, in the emergency department the symptoms are unchanged. The patient has not experienced similar symptoms in the past. The patient has not recently seen a physician. Pt reports slipped while doing laundry, "did the splits", same level fall, thinks injured left hamstring. No other injury. . Historical: - Allergies: 09:43 Morphine (Anaphylaxis); kc6 09:43 PENICILLINS (Anaphylaxis); kc6 - Home Meds: 09:43 None [Active]; kc6 - PMHx: 09:43 HTN; CHF; kc6 - PSHx: 09:43 section; kc6 - Immunization history:: Client reports having NOT received the Covid vaccine. Flu vaccine is up to date. - Social history:: Smoking status: Patient reports the use of cigarette tobacco products, smokes one pack cigarettes per day. Patient/guardian denies using alcohol. - Family history:: not pertinent. - Hospitalizations: : No recent hospitalization is reported. ROS: 10:30 Constitutional: Negative for fever, chills, and weight loss, Neck: Negative for injury, rn pain, and swelling, Cardiovascular: Negative for chest pain, palpitations, and edema, Respiratory: Negative for shortness of breath, cough, wheezing, and pleuritic chest pain, Abdomen/GI: Negative for abdominal pain, nausea, vomiting, diarrhea, and constipation, Back: Negative for injury and pain, MS/Extremity: + left hanstring injury and pain Skin: Negative for injury, rash, and discoloration, Neuro: Negative for headache, weakness, numbness, tingling, and seizure. Exam: 10:30 Constitutional: This is a well developed, well nourished patient who is awake, alert, rn and in no acute distress. Skin: Warm, dry with normal turgor. Normal color with no rashes, no lesions, and no evidence of cellulitis. MS/ Extremity: Pulses equal, no cyanosis. Neurovascular intact. Full, passive ROM. + mild tenderness left hamstring. No open wounds or lacerations. No tenderness of left foot/ankle/knee/hip. Vital Signs: 09:40 BP 158 / 71; Pulse 70; Resp 18 S; Temp 98.4(O); Pulse Ox 100% on R/A; Weight 131.54 kg kc6 (R); Height 6 ft. 0 in. (182.88 cm) (R); Pain 8/10; 10:49 BP 131 / 74; Pulse 54; Resp 18 S; Pulse Ox 100% on R/A; kc6 11:27 BP 129 / 62; Pulse 61; Resp 18 S; Pulse Ox 99% on R/A; kc6 09:40 Body Mass Index 39.33 (131.54 kg, 182.88 cm) kc6 MDM: 09:39 Patient medically screened. rn 11:15 Differential diagnosis: closed fracture, contusion, tendon injury, strain, sprain. Data rn reviewed: vital signs, nurses notes, radiologic studies, plain films, and as a result, I will discharge patient. Counseling: I had a detailed discussion with the patient and/or guardian regarding: the historical points, exam findings, and any diagnostic results supporting the discharge/admit diagnosis, radiology results, the need for outpatient follow up, to return to the emergency department if symptoms worsen or persist or if there are any questions or concerns that arise at home. Special discussion: I discussed with the patient/guardian in detail that at this point there is no indication for admission to the hospital. It is understood, however, that if the symptoms persist or worsen the patient needs to return immediately for re-evaluation. 11:16 ED course: Xrays neg for fracture, will dc home with strain/tendon injury. Return rn precautions given and understood. . 02/19 09:48 Order name: XRAY Femur LEFT; Complete Time: 11:15 rn Administered Medications: No medications were administered Disposition Summary: 02/19/22 11:18 Discharge Ordered Location: Home rn Problem: new rn Symptoms: have improved rn Condition: Stable rn Diagnosis - Strain of other muscle(s) and tendon(s) at lower leg level, left leg, initial rn encounter - Hamstring Followup: rn - With: Private Physician - When: As needed - Reason: Recheck today's complaints, Re-evaluation by your physician Discharge Instructions: - Discharge Summary Sheet rn - Hamstring Strain rn - Muscle Strain rn Forms: - Medication Reconciliation Form rn - Thank You Letter rn - Antibiotic home care rn - Prescription Opioid Use rn Signatures: Dispatcher [employer] Yaakov Diehl MD MD rn Campbell, Kaitlyn, RN RN kc6
[2022-02-19 15:10] VITALS: TEMP 98.4
[2022-02-19 15:12] VITALS: BP 129/62; O2SAT 99
== END 2022-02-19 11:37 | disposition home or self-care (01) ==
LOC: ER 09:35
DX: S86.812A Strain of other muscle(s) and tendon(s) at lower leg level, left leg, initial encounter (principal)
CPT/HCPCS: 99283

== ENCOUNTER 2022-04-23 13:13 | Emergency (ER) | payer BC, SELFPAY ==
--- OUTSIDE RECORDS SUMMARY | 2022-04-23 13:16 | XMS REPORT | Continuity of Care Document ---
:1970 Author Organization [facility] t Address [address] [place] [address] Care Team Providers Name Role Phone Mag Gutierrez MD A Primary Care Physician [phone] [facility] Attending Clinician BAILEE GUZMAN Attending Clinician Unavailable Mag Gutierrez MD Attending Clinician Doctor Unassigned, [place] Attending Clinician Unavailable KANNAN MOON Attending Clinician [...] 0-29 it y of on on 00:: [address] Branch Chronic Chronic Disease Active 2020-03 Univers cough cough 0-20 ity of 00:00: [address] Branch Neuropathy Neuropathy Disease Active 2020-03 U nivers of both of both 0-20 ity of feet feet 00:00: [place] [address] Medical Branch History of History of Disease Active U nivers COVID-19 COVID-19 9-01 ity of 00:00: [place] 00 Medical Branch Hypothyroi Hypothyroi Disease Active Overview : Univers dism dism 11-21 Formattin ity of 00:00: g of this note Medical might be Branch different from the original. 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 Vitamin Vitamin Disease Active Univers B12 [...] Quantity Comments Source Exposure to Not sure [facility] SARS-CoV-2 (event) [facility] Alcohol intake 2021-01-11 2021-01-11 Current University of 00:00:00 00:00:00 non-drinker of [facility] alcohol Branch (finding) Cigarettes smoked 2021-01-02 2021-01-02 Univers ity of current (pack per 00:00:00 00:00:00 ) - Reported Branch Cigarette 2021-01-02 2021-01-02 University of pack-years 00:00:00 00:00:00 [facility] Tobacco use and 2021-01-02 2021-01-02 Never used Universit y of exposure 00:00:00 00:00:00 [facility] Sex Ass[birth year] At [birth year] Universit y of 00:00:00 00:00:00 [facility] Smoking Status Start Date Stop Date Source Current every day smoker 2021-01-02 00:00:00 Uni versity of [facility] Medications Ordered Filled Start Stop Current Ordering Indication Dosage Frequency Signature Comments Components Source Medication Medication Date Date Medication? Clinician (SIG) Name Name triamterene 2020-03 Yes [id number] 1{capsu Take 1 Univers -hydrochlor 0-20 le} capsule by it y of othiazide 00:00: mouth [place] (DYAZIDE) 00 every Medical 37.5-25 mg morning. Branc h per capsule triamterene 2020-03 Yes [id number] 1{capsu Take 1 Univers -hydrochlor 0-20 le} capsule by it y of othiazide 00:00: mouth [place] (DYAZIDE) 00 every Medical 37.5-25 mg morning. Branc h per capsule triamterene 2020-03 Yes [id number] 1{capsu Take 1 Univers -hydrochlor 0-20 le} capsule by it y of othiazide 00:00: mouth [place] (DYAZIDE) 00 every Medical 37.5-25 mg morning. Branc h per capsule triamterene 2020-03 Yes [id number] 1{capsu Take 1 Univers -hydrochlor 0-20 le} capsule by it y of othiazide 00:00: mouth [place] (DYAZIDE) 00 every Medical 37.5-25 mg morning. Branc h per capsule ergocalcife 2020- No [id number] Take 1 Cap Univers rol 11-21 10-20 by mouth. ity of (vitamin 00:00: 00:00 [place]ICE [place] d2) 00 :00 a WEEK Medical (CALCIFEROL (take on Bran ch ) 50,000 Mondays unit and capsule ) levothyroxi 2020- No 88ug Take 1 Tab Univers ne 11-21-20 by mouth ity of (SYNTHROID) 00:00: 00:00 daily. Manuel as 88 mcg 00 :00 [facility] Branch metFORMIN 2020- No 500mg Take 1 Tab Univers (GLUCOPHAGE 11-21 by mouth 2 i ty of ) 500 mg 00:00: 00:00 (two) [place] tablet 00 :00 times Medical daily with Branch meals. cyanocobala 2020- No [id number] by Univers min 11-21 Intramuscu ity of [...] Source Systolic blood 2021-01-02 14:29:00 153 [facility]Hg[facility] pressure [facility] Diastolic blood 2021-01-02 14:29:00 80 mm[Hg] [facility] Heart rate 2021-01-02 14:29:00 101 /min [facility] Body height 2021-01-02 14:28:00 182.9 cm [facility] Body weight 2021-01-02 14:28:00 147.419 kg [facility] BMI 2021-01-02 14:28:00 44.08 kg/m2 [facility] Oxygen saturation 2021-01-02 14:28:00 97 /min [facility] in Arterial blood Medical Br anch by Pulse oximetry Procedures Procedure Date / Time Performed Performing Clinician Sour e EKG-12 LEAD 2021-01-02 15:10:51 Mag Gutierrez [facility] Encounters Start End Encounter Admission Attending Care Care Encounter Source Date/Time Date/Time Type Type Clinicians Facility Department ID 2021-01-21 2021-01-21 [facility] [id number] Univers 00:00:00 00:00:00 (Out) [facility] CHUCKY [id number] [id number] 9[place] 2021-01-17 2021-01-[address] [facility] [id number] Univers 14:30:00 14:30:00 [facility] 2021-01-[address] [facility] [id number] Univers 14:30:00 14:30:00 SENDIL [id number] ity [facility] 2021-01-16 2021-01-16 [facility] [id number] Univers 00:00:00 00:00:00 Management Wondiful A HEALTH [id number] ity of [place] [id number] Manuel as ARON?BLEA [id number] [place] el[place] [address] MEDICAL OFFICE BUILDING 2021-01-16 2021-01-16 Patient Doctor [facility] [id number] Univers 00:00:00 00:00:00 Secure Msg Unassigned, HEALTH [id number] ity of [place] [id number] [place] [phone] [facility] 085 Branch OFFICE BUILDING 2021-01-15 2021-01-[address] [facility] [id number] Univers 10:45:00 10:45:00 [facility] 2021-01-15 2021-01-15 [facility] [id number] Univers 10:45:00 10:45:00 [facility]N [id number] [facility] 2021-01-02 2021-01-02 [facility] [id number] Univers 09:16:49 10:23:55 Visit Wondiful A HEALTH [id number] ity of [place] [id number] Manuel as ARON?BLEA [phone] [address] OFFICE BUILDING 2021-01-02 2021-01-02 [facility] [id number] Univers 10:00:00 10:00:00 WONDIFUL [id number] ity o f [facility] 2021-01-02 2021-01-02 [facility] [id number] Univers 09:00:00 09:00:00 MAG perry [facility] Results This patient has no known results.
--- NOTE | 2022-04-23 14:13 | RAD REPORT ---
EXAM DESCRIPTION: RAD - Chest Pa And Lat (2 Views) - 04/23/2022 2:05 pm CLINICAL HISTORY: COUGH Chest pain. COMPARISON: Chest Single View dated 08/28/2021; Chest Single View dated 08/13/2020; Chest Single View dated 12/13/2019; Chest Single View dated 07/23/2019 FINDINGS: The lungs are clear. The heart is normal in size. No displaced fractures. IMPRESSION: No acute or concerning finding suspected. The USPSTF recommends annual screening for lung cancer with low-dose CT (LDCT) in adults aged 50 to 8 0 years who have a 20 pack-year smoking history and currently smoke or have quit within the past 15 y ears.
--- NOTE | 2022-04-23 14:26 | EDPHYS ---
Physician Documentation [facility] Name: Kaitlin Browning Age: 51 yrs Sex: Female : 1970 Arrival Date: 04/23/2022 Time: 13:14 Bed 10 Private MD: ED Physician Henry Daniel HPI: 04/23 13:39 This 51 yrs old Female presents to ER via Ambulatory with complaints of Cough, ms3 wheezing, sore throat. 13:40 51-year-old female with past medical history of congestive heart failure and ms3 hypertension presents for wheezing, cough, sore throat that is been ongoing for 1 week. Patient states she is taking Mucinex at home without relief. Patient notes she did have fever last week. Patient notes she has had a runny nose, cough, mild body aches. Patient endorses smoking; however, she stopped 1 month ago.. 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 - Social history:: Smoking status: Patient/guardian denies using tobacco, Stopped _ months ago 1. ROS: 13:40 Constitutional: Negative for fever, and chills. Neck: Negative for injury, pain, and ms3 swelling, Cardiovascular: Negative for chest pain, and palpitations. 13:40 Respiratory: Positive for cough, wheezing. 13:40 All other systems are negative. Exam: 13:40 Constitutional: This is a well developed, well nourished patient who is awake, alert, ms3 and in no acute distress. Head/Face: Normocephalic, atraumatic. Neck: Trachea midline, no cervical lymphadenopathy. Supple, full range of motion without nuchal rigidity, or vertebral point tenderness. No Meningismus. Chest/axilla: Normal chest wall appearance and motion. Nontender with no deformity. Cardiovascular: Regular rate and rhythm with a normal S1 and S2. No gallops, murmurs, or rubs. Normal PMI, no JVD. No pulse deficits. Respiratory: Lungs have equal breath sounds bilaterally, clear to auscultation and percussion. No rales, rhonchi or wheezes noted. No increased work of breathing, no retractions or nasal flaring. Abdomen/GI: Soft, non-tender, with normal bowel sounds. No distension or tympany. No guarding or rebound. No evidence of tenderness throughout. MS/ Extremity: Pulses equal, no cyanosis. Neurovascular intact. Full, normal range of motion. No pedal edema present. Vital Signs: 13:33 BP 160 / 81; Pulse 85; Resp 16 S; Temp 98.1(TE); Pulse Ox 96% on R/A; Weight 132 kg aa5 (M); Height 6 ft. 0 in. (182.88 cm) (R); 13:33 Body Mass Index 39.47 (132.00 kg, 182.88 cm) aa5 MDM: 13:39 Patient medically screened. ms3 13:40 Differential diagnosis: bronchitis, flu, URI. ms3 14:25 Data reviewed: vital signs, nurses notes, and as a result, I will discharge patient. ms3 14:25 Independent interpretation of the following test(s) in the Emergency Department X-Ray: ms3 My interpretation is X-ray image reviewed by me negative. Counseling: I had a detailed discussion with the patient and/or guardian regarding: the historical points, exam findings, and any diagnostic results supporting the discharge/admit diagnosis, radiology results, the need for outpatient follow up, to return to the emergency department if symptoms worsen or persist or if there are any questions or concerns that arise at home. ED course: Discussed chest x-ray results with patient. Patient to follow-up with primary care physician in 2 to 3 days. Patient stands agrees with plan. All questions were answered. Return precautions discussed include worsening symptoms, or any other concerns. On reevaluation patient is alert and oriented x4, no apparent distress, nontoxic, ambulatory in emergency room, speaking full sentences. 04/23 13:36 Order name: Chest Pa And Lat (2 Views) XRAY; Complete Time: 14:22 ms3 Administered Medications: No medications were administered Disposition Summary: 04/23/22 14:25 Discharge Ordered Location: Home ms3 Condition: Stable ms3 Diagnosis - Cough ms3 - Myalgia ms3 - Pain in throat ms3 Followup: ms3 - With: Torrey Block DO - When: 2 - 3 days - Reason: Recheck today's complaints Discharge Instructions: - Discharge Summary Sheet ap3 - Cool Mist Vaporizer ms3 - Cough, Adult, [id number] ms3 - Cough, Adult ms3 Forms: - Work release form ap3 - Medication Reconciliation Form ms3 - Thank You Letter ms3 - Antibiotic Education ms3 - Prescription Opioid Use ms3 Signatures: Dispatcher [employer] Arlette Briggs, RN RN aa5 Henry Daniel DO DO ms3 Corrections: (The following items were deleted from the chart) 13:35 13:34 Social history: Smoking status: Patient denies any tobacco usage or history of. yi5 aa5 13:41 13:39 This 51 yrs old Female presents to ER via Ambulatory with complaints of Chest ms3 Tightness, Shortness Of Breath. ms3 19:18 19:11 Data reviewed: ms3 ms3
--- NOTE | 2022-04-23 14:26 | ER ---
Nurse's Notes [facility] Name: Kaitlin Browning Age: 51 yrs Sex: Female : 1970 Arrival Date: 04/23/2022 Time: 13:14 Bed 10 Private MD: Diagnosis: Cough;Myalgia;Pain in throat Presentation: 04/23 13:32 Chief complaint: Patient states: "I wasn't feeling well since last week and I think aa5 it's allergies". Pt reports chest congestion, chest tightness, cough, and mild SOB. 13:32 Acuity: PERRY 4 aa5 13:33 Coronavirus screen: cough unrelated to allergies. Ebola Screen: Patient denies travel aa5 to an Ebola-affected area in the 21 days before illness onset. Initial Sepsis Screen: Does the patient meet any 2 criteria? No. Patient's initial sepsis screen is negative. Does the patient have a suspected source of infection? No. Patient's initial sepsis screen is negative. Risk Assessment: Do you want to hurt yourself or someone else? Patient reports no desire to harm self or others. Onset of symptoms was April 2022. 13:33 Method Of Arrival: Ambulatory aa5 Triage Assessment: 14:36 General: Appears in no apparent distress. Behavior is calm, cooperative, appropriate ap3 for age. Pain: Denies pain. Neuro: Level of Consciousness is awake, alert, obeys commands, Oriented to person, place, time, situation, Belly Roller are. Cardiovascular: Patient's skin is warm and dry. Respiratory: Reports cough that is Airway is patent Respiratory effort is even, unlabored. FIRST HELPER: 14:36 LMP N/A - Irregular menses ap3 Historical: - Allergies: 13:34 Morphine (Anaphylaxis); aa5 13:34 PENICILLINS (Anaphylaxis); aa5 - Home Meds: 13:35 None [Active]; aa5 - PMHx: 13:34 CHF; HTN; aa5 - PSHx: 13:34 section; aa5 - Immunization history:: Adult Immunizations unknown. - Social history:: Smoking status: Patient/guardian denies using tobacco, Stopped _ months ago 1. Screenin:35 [facility] ED Fall Risk Assessment (Adult) History of falling in the last 3 months, ap3 including since admission No falls in past 3 months (0 pts). Abuse screen: Denies threats or abuse. Nutritional screening: No deficits noted. Tuberculosis screening: No symptoms or risk factors identified. Assessment: 14:36 Pain: Pain does not radiate. Pain began gradually. ap3 Vital Signs: 13:33 BP 160 / 81; Pulse 85; Resp 16 S; Temp 98.1(TE); Pulse Ox 96% on R/A; Weight 132 kg aa5 (M); Height 6 ft. 0 in. (182.88 cm) (R); 13:33 Body Mass Index 39.47 (132.00 kg, 182.88 cm) aa5 ED Course: 13:14 Patient arrived in ED. as 13:18 Henry Daniel DO is Attending Physician. ms3 13:32 Arm band placed on. aa5 13:33 Triage completed. aa5 14:06 Chest Pa And Lat (2 Views) XRAY In Process Unspecified. EDMS 14:16 Brianna Tena, RN is Primary Nurse. ap3 14:25 Torrey Block DO is Referral Physician. ms3 14:36 Patient has correct armband on for positive identification. Bed in low position. Call ap3 light in reach. Pulse ox on. NIBP on. 14:36 No provider procedures requiring assistance completed. Patient did not have IV access ap3 during this emergency room visit. Patient maintains SpO2 saturation greater than 95% on room air. Administered Medications: No medications were administered Medication: 14:37 VIS not applicable for this client. ap3 Outcome: 14:25 Discharge ordered by MD. ms3 14:36 Discharged to home ambulatory. ap3 14:36 Condition: good 14:36 Discharge instructions given to patient, Instructed on discharge instructions, follow up and referral plans. Demonstrated understanding of instructions, follow-up care. 14:37 Patient left the ED. ap3 Signatures: Dispatcher [employer] EMILYMS Monse Velásquez Audri, RN RN aa5 Brianna Tena RN RN ap3 Henry Daniel DO DO ms3 Corrections: (The following items were deleted from the chart) 13:34 13:32 Chief complaint: Patient states: "I wasn't feeling well since last week and I aa5 think it's allergies". Pt reports chest congestion and mild SOB. aa5 13:35 13:34 Social history: Smoking status: Patient denies any tobacco usage or history of. aa5 aa5 13:37 13:33 BP 160 / 81; Pulse 85bpm; Resp 16bpm; Spontaneous; Pulse Ox 96% RA; Temp 98.1F aa5 Temporal; Height 6 ft. 0 in. Reported; aa5
[2022-04-23 14:50] VITALS: BP 160/81; TEMP 98.1; O2SAT 96
== END 2022-04-23 14:37 | disposition home or self-care (01) ==
LOC: ER 13:13
DX: R05.9 Cough, unspecified (principal); M79.10 Myalgia, unspecified site; R07.0 Pain in throat; I10 Essential (primary) hypertension; I50.9 Heart failure, unspecified; Z88.0 Allergy status to penicillin; Z88.5 Allergy status to narcotic agent
CPT/HCPCS: 71046

== ENCOUNTER 2022-05-05 12:21 | Emergency (ER) | payer BC ==
--- OUTSIDE RECORDS SUMMARY | 2022-05-05 12:25 | XMS REPORT | Continuity of Care Document ---
:1970 Author Organization [facility] t Address [address] [place] [address] Care Team Providers Name Role Phone Mag Gutierrez MD A Primary Care Physician [phone] [facility] Attending Clinician BAILEE GUZMAN Attending Clinician Unavailable Mag Gutierrez MD Attending Clinician Doctor Unassigned, [place] Attending Clinician Unavailable KANNAN MOON Attending Clinician [...] 0-29 it y of on on 00:: [address] Branch Chronic Chronic Disease Active 2020-03 Univers cough cough 0-20 ity of 00:00: [address] Branch Neuropathy Neuropathy Disease Active 2020-03 U nivers of both of both 0-20 ity of feet feet 00:00: [place] [address] Medical Branch History of History of Disease Active U nivers COVID-19 COVID-19 9-01 ity of 00:00: [place] 00 Medical Branch Hypothyroi Hypothyroi Disease Active Overview : Univers dism dism 11-21 Formattin ity of 00:00: g of this note Medical might be Branch different from the original. ICD10 Diagnosis Term Medication Care Manager Utility Vitamin Vitamin Disease Active Univers B12 [...] Quantity Comments Source Exposure to Not sure [facility] SARS-CoV-2 (event) [facility] Alcohol intake 2021-01-11 2021-01-11 Current University of 00:00:00 00:00:00 non-drinker of [facility] alcohol Branch (finding) Cigarettes smoked 2021-01-02 2021-01-02 Univers ity of current (pack per 00:00:00 00:00:00 ) - Reported Branch Cigarette 2021-01-02 2021-01-02 University of pack-years 00:00:00 00:00:00 [facility] Tobacco use and 2021-01-02 2021-01-02 Never used Universit y of exposure 00:00:00 00:00:00 [facility] Sex Assigned At [birth year] Universit y of 00:00:00 00:00:00 [facility] Smoking Status Start Date Stop Date Source Current every day smoker 2021-01-02 00:00:00 Uni versity of [facility] Medications Ordered Filled Start Stop Current Ordering Indication Dosage Frequency Signature Comments Components Source Medication Medication Date Date Medication? Clinician (SIG) Name Name triamterene 2020-03 Yes [id number] 1{capsu Take 1 Univers -hydrochlor 0-20 le} capsule by it y of othiazide 00:00: mouth [place] (DYAZIDE) 00 every Medical 37.5-25 mg morning. Branc h per capsule triamterene 2020-03 Yes [id number] 1{capsu Take 1 Univers -hydrochlor 0-20 le} capsule by it y of othiazide 00:00: mouth [place] (DYAZIDE) 00 every Medical 37.5-25 mg morning. Branc h per capsule triamterene 2020-03 Yes [id number] 1{capsu Take 1 Univers -hydrochlor 0-20 le} capsule by it y of othiazide 00:00: mouth [place] (DYAZIDE) 00 every Medical 37.5-25 mg morning. Branc h per capsule triamterene 2020-03 Yes [id number] 1{capsu Take 1 Univers -hydrochlor 0-20 le} capsule by it y of othiazide 00:00: mouth [place] (DYAZIDE) 00 every Medical 37.5-25 mg morning. Branc h per capsule ergocalcife 2020- No [id number] Take 1 Cap Univers rol 11-21 10-20 by mouth. ity of (vitamin 00:00[place] 00:00 Take TWICE [place] d2) 00 :00 a WEEK Medical (CALCIFEROL (take on Bran ch ) 50,000 Mondays unit and capsule ) levothyroxi 2020- No 88ug Take 1 Tab Univers ne 11-21-20 by mouth ity of (SYNTHROID) 00:00: 00:00 daily. Manuel as 88 mcg 00 :00 [facility] Branch metFORMIN 2020- No 500mg Take 1 Tab Univers (GLUCOPHAGE 11-21 by mouth 2 i ty of ) 500 mg 00:00: 00:00 (two) [place] tablet 00 :00 times Medical daily with Branch meals. cyanocobala 2020- No [id number] by Univers min 11-21 Intramuscu ity of [...] Source Systolic blood 2021-01-02 14:29:00 153 mm[Hg] [facility] [place] [facility] pressure [facility] Diastolic blood 2021-01-02 14:29:00 80 mm[Hg] [facility] Heart rate 2021-01-02 14:29:00 101 /min [facility] Body height 2021-01-02 14:28:00 182.9 cm [facility] Body weight 2021-01-02 14:28:00 147.419 kg [facility] BMI 2021-01-02 14:28:00 44.08 kg/m2 [facility] Oxygen saturation 2021-01-02 14:28:00 97 /min [facility] in Arterial blood Medical Br anch by Pulse oximetry Procedures Procedure Date / Time Performed Performing Clinician Sour e EKG-12 LEAD 2021-01-02 15:10:51 Mag Gutierrez [facility] Encounters Start End Encounter Admission Attending Care Care Encounter Source Date/Time Date/Time Type Type Clinicians Facility Department ID 2021-01-21 2021-01-21 [facility] [id number] Univers 00:00:00 00:00:00 (Out) [facility] CHUCKY [id number] [id number] 9[place] 2021-01-17 2021-01-17 Outpatient R MEGAN [facility] [id number] Univers 14:30:00 14:30:00 [facility] 2021-01-17 Outpatient R MEGAN [facility] [id number] Univers 14:30:00 14:30:00 SENDIL [id number] ity [facility] [place] 2021-01-16 2021-01-16 [facility] [id number] Univers 00:00:00 00:00:00 Management Wondiful A HEALTH [id number] ity of [place] [id number] Manuel as ARON?BLEA [phone] [place] eliz [address] MEDICAL OFFICE BUILDING 2021-01-16 2021-01-16 Patient Doctor [facility] [id number] Univers 00:00:00 00:00:00 Secure Msg Unassigned, HEALTH [id number] ity of [place] CLEAR [id number] [place] [id number] [facility] [place] 085 Branch OFFICE BUILDING 2021-01-15 2021-01-15 Outpatient R RED [facility] [id number] Univers 10:45:00 10:45:00 [facility]-01-15 2021-01-15 [facility] [id number] Univers 10:45:00 10:45:00 [facility]ANNAN [id number] [facility] 2021-01-02 2021-01-02 [facility] [id number] Univers 09:16:49 10:23:55 Visit Wondiful A HEALTH [id number] ity of [place] [id number] Manuel as ARON?BLEA [phone] [address] OFFICE BUILDING 2021-01-02 2021-01-02 [facility] [id number] Univers 10:00:00 10:00:00 WONDIFUL [id number] ity o f [facility] 2021-01-02 2021-01-02 [facility] [id number] Univers 09:00:00 09:00:00 MAG perry [facility] Results This patient has no known results.
--- NOTE | 2022-05-05 13:15 | RAD REPORT ---
EXAM DESCRIPTION: RAD - Shoulder Right 2 View - 05/05/2022 1:04 pm CLINICAL HISTORY: PAIN COMPARISON: No comparisons FINDINGS: No acute fracture or dislocation seen. Moderate glenohumeral AC joint arthritic changes ar e present.
--- NOTE | 2022-05-05 13:16 | RAD REPORT ---
EXAM DESCRIPTION: RAD - Forearm Right - 05/05/2022 1:05 pm CLINICAL HISTORY: PAIN COMPARISON: No comparisons FINDINGS: No acute fracture or dislocation seen.
--- NOTE | 2022-05-05 13:16 | RAD REPORT ---
EXAM DESCRIPTION: RAD - Humerus Right - 05/05/2022 1:05 pm CLINICAL HISTORY: PAIN COMPARISON: No comparisons FINDINGS: Moderate AC joint and glenohumeral joint arthritic changes are present. No acute fracture or dislocation seen.
--- NOTE | 2022-05-05 13:17 | RAD REPORT ---
EXAM DESCRIPTION: RAD - Hand Right 3 View - 05/05/2022 1:05 pm CLINICAL HISTORY: PAIN COMPARISON: No comparisons FINDINGS: Mild soft tissue swelling is seen along the dorsum of the hand. No acute fracture seen.
--- NOTE | 2022-05-05 13:51 | EDPHYS ---
Physician Documentation [facility] Name: Kaitlin Browning Age: 51 yrs Sex: Female : 1970 Arrival Date: 05/05/2022 Time: 12:25 Bed IW4 Private MD: ED Physician Yaakov Mathew HPI: 05/05 13:44 This 51 yrs old Female presents to ER via Ambulatory with complaints of Arm Injury, rn Hand Injury. 13:44 The patient or guardian complains of decreased range of motion, injury, pain. The rn complaints affect the anterior aspect of right shoulder, right hand and right elbow. Onset: The symptoms/episode began/occurred last night. Modifying factors: The symptoms are alleviated by nothing. the symptoms are aggravated by movement, lifting weight, bending arm. Associated signs and symptoms: Pertinent positives: decreased range of motion, pain, Pertinent negatives: erythema, fever, weakness. Severity of symptoms: At their worst the symptoms were moderate, in the emergency department the symptoms are unchanged. The patient has not experienced similar symptoms in the past. The patient has not recently seen a physician. Pt reports slipped last night on dog poop, fell onto ground, unsure if fell with arm out or in, reports pain from shoulder to hand. "doesn't feel like anything is broken". . 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 - Social history:: Smoking status: unknown. - Family history:: not pertinent. - Hospitalizations: : No recent hospitalization is reported. ROS: 13:44 Constitutional: Negative for fever, chills, and weight loss, Eyes: Negative for injury, rn pain, redness, and discharge, Neck: Negative for injury, pain, and swelling, Cardiovascular: Negative for chest pain, palpitations, and edema, Respiratory: Negative for shortness of breath, cough, wheezing, and pleuritic chest pain, Abdomen/GI: Negative for abdominal pain, nausea, vomiting, diarrhea, and constipation, Back: Negative for injury and pain, MS/Extremity: + right arm injury and pain Skin: Negative for injury, rash, and discoloration, Neuro: Negative for headache, weakness, numbness, tingling, and seizure. Exam: 13:44 Constitutional: This is a well developed, well nourished patient who is awake, alert, rn and in no acute distress. MS/ Extremity: Pulses equal, no cyanosis. Neurovascular intact. HOlding right arm in passive flexion. + painful ROM right shoulder and tender over MC and MCP joints of hand with mild swelling, no open wounds, no gross deformity. Vital Signs: 12:42 BP 165 / 90; Pulse 78; Resp 17; Temp 97.9; Pulse Ox 100% ; Weight 131.54 kg; Height 6 jl7 ft. 0 in. (182.88 cm); Pain 8/10; 12:42 Body Mass Index 39.33 (131.54 kg, 182.88 cm) jl7 MDM: 12:30 Patient medically screened. rn 13:44 Differential diagnosis: dislocation, closed fracture, contusion. Data reviewed: vital rn signs, nurses notes, radiologic studies, plain films, and as a result, I will discharge patient. Independent interpretation of the following test(s) in the Emergency Department X-Ray: My interpretation is Xray shoulder/humerus/forearm/hand images all neg for obvious fracture/dislocation. Counseling: I had a detailed discussion with the patient and/or guardian regarding: the historical points, exam findings, and any diagnostic results supporting the discharge/admit diagnosis, radiology results, the need for outpatient follow up, to return to the emergency department if symptoms worsen or persist or if there are any questions or concerns that arise at home. Special discussion: I discussed with the patient/guardian in detail that at this point there is no indication for admission to the hospital. It is understood, however, that if the symptoms persist or worsen the patient needs to return immediately for re-evaluation. 05/05 12:34 Order name: XRAY Shoulder RIGHT 2 view rn 05/05 12:34 Order name: XRAY Humerus RIGHT rn 05/05 12:34 Order name: XRAY Hand RIGHT 3 View rn 05/05 12:34 Order name: XRAY Forearm RIGHT rn 05/05 13:16 Order name: RAD; Complete Time: 13:44 EDMS 05/05 13:16 Order name: RAD; Complete Time: 13:44 EDMS 05/05 13:16 Order name: RAD; Complete Time: 13:44 EDMT 05/05 13:18 Order name: RAD; Complete Time: 13:44 EDMT 05/05 15:01 Order name: Osman; Complete Time: 15:09 rn Administered Medications: No medications were administered Disposition Summary: 05/05/22 13:51 Discharge Ordered Location: Home rn Problem: new rn Symptoms: are unchanged rn Condition: Stable rn Diagnosis - Other sprain of right shoulder joint rn - Sprain of other part of right wrist and hand rn - Contusion of right shoulder rn Followup: rn - With: Private Physician - When: As needed - Reason: Recheck today's complaints, Re-evaluation by your physician Discharge Instructions: - Discharge Summary Sheet rn - Contusion rn - Shoulder Sprain rn - Intermetacarpal Sprain rn Forms: - Medication Reconciliation Form rn - Thank You Letter rn - Antibiotic advertising internship - Prescription Opioid Use rn - Work release form ss Signatures: Dispatcher [employer] Yaakov Diehl MD MD rn Leal, Jahala, RN RN jl7
--- NOTE | 2022-05-05 13:51 | ER ---
Nurse's Notes [facility] Name: Kaitlin Browning Age: 51 yrs Sex: Female : 1970 Arrival Date: 05/05/2022 Time: 12:25 Bed IW4 Private MD: Diagnosis: Other sprain of right shoulder joint;Sprain of other part of right wrist and hand;Contusion of right shoulder Presentation: 05/05 12:42 Chief complaint: Patient states: Slipped and fell this morning, reports pain to right jl7 shoulder, radiates to right elbow. Coronavirus screen: At this time, the client does not indicate any symptoms associated with coronavirus-19. Ebola Screen: No symptoms or risks identified at this time. Initial Sepsis Screen: Does the patient meet any 2 criteria? No. Patient's initial sepsis screen is negative. Does the patient have a suspected source of infection? No. Patient's initial sepsis screen is negative. Risk Assessment: Do you want to hurt yourself or someone else? Patient reports no desire to harm self or others. Onset of symptoms was May 05, 2022 at 02:00. 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 - Social history:: Smoking status: unknown. - Family history:: not pertinent. - Hospitalizations: : No recent hospitalization is reported. Screenin:11 Abuse screen: Denies threats or abuse. Denies injuries from another. Nutritional ss screening: No deficits noted. Tuberculosis screening: Never had TB. Assessment: 15:11 General: Appears in no apparent distress. comfortable, Behavior is calm, cooperative. ss Pain: Complains of pain in right elbow and anterior aspect of right shoulder Pain currently is 8 out of 10 on a pain scale. Neuro: Level of Consciousness is awake, alert, obeys commands, Oriented to person, place, time, situation. Respiratory: Airway is patent Respiratory effort is even, unlabored, Respiratory pattern is regular, symmetrical. Derm: Skin is intact, is healthy with good turgor, Skin is dry, Skin is pink, warm \T\ dry. normal. Musculoskeletal: Circulation, motion, and sensation intact. Range of motion: intact in all extremities, Swelling absent. Vital Signs: 12:42 BP 165 / 90; Pulse 78; Resp 17; Temp 97.9; Pulse Ox 100% ; Weight 131.54 kg; Height 6 jl7 ft. 0 in. (182.88 cm); Pain 8/10; 12:42 Body Mass Index 39.33 (131.54 kg, 182.88 cm) jl7 ED Course: 12:25 Patient arrived in ED. rg4 12:29 Yaakov Mathew MD is Attending Physician. rn 12:43 Triage completed. jl7 12:43 Arm band placed on right wrist. jl7 15:09 Jessy Gomez, ULISES is Primary Nurse. ss 15:11 Patient has correct armband on for positive identification. Bed in low position. Call ss light in reach. 15:11 No provider procedures requiring assistance completed. Patient did not have IV access ss during this emergency room visit. Administered Medications: No medications were administered Medication: 15:11 VIS not applicable for this client. ss Outcome: 13:51 Discharge ordered by . rn 15:11 Discharged to home ss 15:11 Condition: good 15:11 Discharge instructions given to patient, Instructed on discharge instructions, follow up and referral plans. Demonstrated understanding of instructions, follow-up care. 15:13 Patient left the ED. ss Signatures: Yaakov Mathew MD MD rn Smirch, Shelby, RN RN Ayaka Guerra rg4 Alonzo Rogel RN RN jl7
[2022-05-05 16:17] VITALS: BP 165/90; TEMP 97.9; O2SAT 100
== END 2022-05-05 15:13 | disposition home or self-care (01) ==
LOC: ER 12:21
DX: S43.491A Other sprain of right shoulder joint, initial encounter (principal); S63.8X1A Sprain of other part of right wrist and hand, initial encounter; S40.011A Contusion of right shoulder, initial encounter; I10 Essential (primary) hypertension; I50.9 Heart failure, unspecified; Z88.0 Allergy status to penicillin; Z88.5 Allergy status to narcotic agent
CPT/HCPCS: 99281

== ENCOUNTER 2022-08-07 10:00 | Emergency (ER) | payer BC ==
--- OUTSIDE RECORDS SUMMARY | 2022-08-07 10:05 | XMS REPORT | Continuity of Care Document ---
:1970 Author Organization [facility] t Address [address] [place] [address] [address] [place] [address] Care Team Providers Name Role Phone Mag Gutierrez MD Primary Care Physician [phone] [facility] Attending Clinician BAILEE GUZMAN Attending Clinician Unavailable Mag Gutierrez MD Attending Clinician Doctor Unassigned, [place] Attending Clinician Unavailable KANNAN MOON Attending Clinician [...] 0-29 it y of on on 00:: [address] Branch Chronic Chronic Disease Active 2020-03 Univers cough cough 0-20 ity of 00:: [address] Branch Neuropathy Neuropathy Disease Active 2020-03 U nivers of both of both 0-20 ity of feet feet 00:00: [place] [id number] Medical Branch History of History of Disease Active U nivers COVID-19 COVID-19 11-14 ity of 00:00: [place] 00 Medical Branch Hypothyroi Hypothyroi Disease Active Overview : Univers dism dism 11-21 Formattin ity of 00:00: g of this [place] 00 note Medical might be Branch different from the original. 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 Utility Vitamin Vitamin Disease Active Univers B12 [...] Not sure [facility] SARS-CoV-2 (event) [facility] [place] Branch Alcohol intake 2021-01-11 2021-01-11 Current University of 00:00:00 00:00:00 non-drinker of [facility] alcohol Branch (finding) Cigarettes smoked 2021-01-02 2021-01-02 Univers ity of current (pack per 00:00:00 00:00:00 ) - Reported Branch Cigarette 2021-01-02 2021-01-02 University of pack-years 00:00:00 00:00:00 [facility] Tobacco use and 2021-01-02 2021-01-02 Never used Universit y of exposure 00:00:00 00:00:00 [facility] Sex Ass[birth year] At [birth year] Universit y of 00:00:00 00:00:00 [facility] Smoking Status Start Date Stop Date Source Current every day smoker 2021-01-02 00:00:00 Uni versity of [facility] Medications Ordered Filled Start Stop Current Ordering Indication Dosage Frequency Signature Comments Components Source Medication Medication Date Date Medication? Clinician (SIG) Name Name triamterene 2020-03 Yes [id number] 1{capsu Take 1 Univers -hydrochlor 0-20 le} capsule by it y of othiazide 00:00: mouth [place] (DYAZIDE) 00 every Medical 37.5-25 mg morning. Branc h per capsule triamterene 2020-03 Yes [id number] 1{capsu Take 1 Univers -hydrochlor 0-20 le} capsule by it y of othiazide 00:00: mouth [place] (DYAZIDE) 00 every Medical 37.5-25 mg morning. Branc h per capsule triamterene 2020-03 Yes [id number] 1{capsu Take 1 Univers -hydrochlor 0-20 le} capsule by it y of othiazide 00:00: mouth [place] (DYAZIDE) 00 every Medical 37.5-25 mg morning. Branc h per capsule triamterene 2020-03 Yes [id number] 1{capsu Take 1 Univers -hydrochlor 0-20 le} capsule by it y of othiazide 00:00: mouth [place] (DYAZIDE) 00 every Medical 37.5-25 mg morning. Branc h per capsule ergocalcife 2020- No [id number] Take 1 Cap Univers rol 11-21 10-20 by mouth. ity of (vitamin 00:00: 00:00 [place] TWICE [place] d2) 00 :00 a WEEK Medical (CALCIFEROL (take on Bran ch ) 50,000 Mondays unit and capsule ) levothyroxi 2020- No 88ug Take 1 Tab Univers ne 11-21 10-20 by mouth ity of (SYNTHROID) 00:00: 00:00 daily. [place] as 88 mcg 00 :00 Medical tablet Branch metFORMIN 2020- No 500mg Take 1 Tab Univers (GLUCOPHAGE 11-21 by mouth 2 i ty of ) 500 mg 00:00: 00:00 (two) [place] tablet 00 :00 times Medical daily with Branch meals. cyanocobala 2020- No [id number] by Univers min 11-21 Intramuscu ity of [...] Source Systolic blood 2021-01-02 14:29:00 153 mm[Hg] [facility] Diastolic blood 2021-01-02 14:29:00 80 mm[Hg] [facility] rate 2021-01-02 14:29:00 101 /min [facility] Body height 2021-01-02 14:28:00 182.9 cm [facility] Body weight 2021-01-02 14:28:00 147.419 kg [facility] BMI 2021-01-02 14:28:00 44.08 kg/m2 [facility] Oxygen saturation 2021-01-02 14:28:00 97 /min [facility] in Arterial blood Medical Br anch by Pulse oximetry Procedures Procedure Date / Time Performed Performing Clinician Sour e EKG-12 LEAD 2021-01-02 15:10:51 Mag Gutierrez [facility] Encounters Start End Encounter Admission Attending Care Care Encounter Source Date/Time Date/Time Type Type Clinicians Facility Department ID 2021-01-21 2021-01-21 Letter Rigoberto [facility] [id number] Univers 00:00:00 00:00:00 (Out) [facility] CHUCKY [id number] [id number] 9[place] 2021-01-17 2021-01-17 Outpatient R MEGAN [facility] [id number] Univers 14:30:00 14:30:00 [facility] 2021-01-17 2021-01-17 Outpatient R MEGAN [facility] [id number] Univers 14:30:00 14:30:00 [facility] [id number] [facility] 2021-01-16 2021-01-16 Case Matt [facility] [id number] Univers 00:00:00 00:00:00 Management Wondiful A HEALTH [id number] ity of [place] [id number] Manuel as ARON?BLEA [phone] [address] MEDICAL OFFICE BUILDING 2021-01-16 2021-01-16 Patient Doctor [facility] [id number] Univers 00:00:00 00:00:00 Secure Msg Unassigned, HEALTH [id number] ity of [id number] [place] [phone] [facility] 085 Branch OFFICE BUILDING 2021-01-15 2021-01-15 Outpatient R RED [facility] [id number] Univers 10:45:00 10:45:00 [facility] 2021-01-15 2021-01-15 Outpatient R RED [facility] [id number] Univers 10:45:00 10:45:00 KANNAN [id number] [facility] 2021-01-02 2021-01-02 [facility] [id number] Univers 09:16:49 10:23:55 Visit Wondiful A HEALTH [id number] [facility] [id number] [place] as ARON?BLEA [phone] [address] OFFICE BUILDING 2021-01-02 2021-01-02 [facility] [id number] Univers 10:00:00 10:00:00 WONDIFUL [id number] ity o f [facility] 2021-01-02 2021-01-02 Outpatient R MATT [facility] [id number] [facility] 09:00:00 09:00:00 OSMANIDIJOANA perry [facility] Results This patient has no known results.
--- NOTE | 2022-08-07 11:34 | EDPHYS ---
Physician Documentation [facility] Name: Kaitlin Browning Age: 52 yrs Sex: Female : 1970 Arrival Date: 08/07/2022 Time: 10:00 Bed 12 Private MD: ED Physician Kenyon Hector HPI: 08/07 10:16 This 52 yrs old Female presents to ER via Unassigned with complaints of Toe bs3 Injury. 10:16 52yo f current smoker presents with right fifth toe pain, she states she banged it bs3 against something on Thursday and has increased pain and swelling. She denies stepping, on something or anything else. No fever, or chills. . Historical: - Allergies: 10:25 Morphine (Anaphylaxis); nj1 10:25 PENICILLINS (Anaphylaxis); nj1 - Home Meds: 10:25 None [Active]; nj1 - PMHx: 10:25 CHF; HTN; nj1 - PSHx: 10:25 section; nj1 - Immunization history:: Last tetanus immunization: up to date. - Social history:: Smoking status: Patient reports the use of cigarette tobacco products, smokes one-half pack cigarettes per day. ROS: 10:16 Constitutional: Negative for fever, chills Eyes: Negative for injury, pain, redness, bs3 and discharge. Exam: 10:16 Constitutional: This is a well developed, well nourished patient who is awake, alert, bs3 and in no acute distress. Head/Face: Normocephalic, atraumatic. Eyes: Pupils equal round and reactive to light, extra-ocular motions intact. Lids and lashes normal. ENT: mmm, no posterior phyarngeal erythema Neck: Trachea midline, no thyromegaly, no neck stiffness Skin: Warm, dry with normal turgor. Normal color with no rashes, no lesions, and no evidence of cellulitis. MS/ Extremity: Her fifth toe is red, slightly swollen, on the bottom there is a yellow discoloration and I was able to express purulent material from it Vital Signs: 10:19 BP 167 / 91; Pulse 71; Resp 18; Temp 98.2; Pulse Ox 98% on R/A; Weight 104.33 kg; nj1 Height 6 ft. 0 in. ; Pain 9/10; 10:19 Body Mass Index 31.19 (104.33 kg, 182.88 cm) nj1 10:19 Pain Scale: Adult nj1 Procedures: 10:57 I \T\ D: Incision and drainage was performed for an abscess of the right right foot bs3 Prepped with Betadine, Anesthetized with nothing. Incised with #11 blade. Drained small amount moderate amount Dressing: None. MDM: 10:10 Patient medically screened. bs3 10:16 Data reviewed: vital signs, nurses notes. ED course: likely cutaneous abscess will r/o bs3 fx, given the purulence will cover for mrsa, will incise to increase drainage with stab incision. 10:57 ED course: pt tolerated stab incision, will cover with antibiotcs, return prec given. . bs3 11:32 ED course: X-ray negative for foreign body or fracture as interpreted by myself. bs3 08/07 10:16 Order name: XRAY Foot RIGHT 3 View; Complete Time: 11:39 bs3 Administered Medications: 11:17 Drug: Clindamycin PO 450 mg Route: PO; nj1 Disposition Summary: 08/07/22 11:33 Discharge Ordered Location: Home bs3 Problem: new bs3 Symptoms: have improved bs3 Condition: Stable bs3 Diagnosis - Cutaneous abscess of right foot bs3 Followup: bs3 - With: Private Physician - When: 2 - 3 days - Reason: Re-evaluation by your physician Discharge Instructions: - Discharge Summary Sheet bs3 - Skin Abscess, Eagy-ra-Awjv bs3 Forms: - Medication Reconciliation Form bs3 - Thank You Letter bs3 - Antibiotic Education bs3 - Prescription Opioid Use bs3 Prescriptions: - Clindamycin HCl 150 mg Oral Capsule - take 3 capsule by ORAL route every 6 hours for 7 days; 84 capsule; Refills: 0, bs3 Product Selection Permitted Signatures: Dispatcher [employer] EDMS Kenyon Hector MD MD bs3 Esha Reyes RN RN nj1 Corrections: (The following items were deleted from the chart) 10:26 10:16 52yo f current smoker presents with right fifth toe pain, she states she banged bs3 it against something on Thursday and has increased pain and swelling. She denies stepping, on something or anything else. No fever, or chills. . bs3 10:26 10:16 This 52 yrs old Female presents to ER via Unassigned with complaints of bs3 Toe Injury. bs3 10:27 10:16 Constitutional: This is a well developed, well nourished patient who is awake, bs3 alert, and in no acute distress. Head/Face: Normocephalic, atraumatic. Eyes: Pupils equal round and reactive to light, extra-ocular motions intact. Lids and lashes normal. ENT: mmm, no posterior phyarngeal erythema Neck: Trachea midline, no thyromegaly, no neck stiffness Skin: Warm, dry with normal turgor. Normal color with no rashes, no lesions, and no evidence of cellulitis. MS/ Extremity: Her fifth toe is red, slightly swollen, bs3
--- NOTE | 2022-08-07 11:34 | ER ---
Nurse's Notes [facility] Name: Kaitlin Browning Age: 52 yrs Sex: Female : 1970 Arrival Date: 08/07/2022 Time: 10:00 Bed 12 Private MD: Diagnosis: Cutaneous abscess of right foot Presentation: 08/07 10:19 Chief complaint: Patient states: Right pinky toe pain, hit toe against either a pallet nj1 or the floor maureen on Thursday, woke up Thursday with severe pain. Has gotten worse, swelling and worse with walking. Coronavirus screen: Vaccine status: Patient reports being unvaccinated. Ebola Screen: No symptoms or risks identified at this time. Initial Sepsis Screen: Does the patient meet any 2 criteria? No. Patient's initial sepsis screen is negative. Does the patient have a suspected source of infection? No. Patient's initial sepsis screen is negative. Risk Assessment: Do you want to hurt yourself or someone else? Patient reports no desire to harm self or others. Onset of symptoms was August 01, 2022. 10:19 Method Of Arrival: Ambulatory [facility] 10:19 Acuity: PERRY 4 [facility] Historical: - Allergies: 10:25 Morphine (Anaphylaxis); nj1 10:25 PENICILLINS (Anaphylaxis); [facility] - Home Meds: 10:25 None [Active]; [facility] - PMHx: 10:25 CHF; HTN; [facility] - PSHx: 10:25 section; [facility] - Immunization history:: Last tetanus immunization: up to date. - Social history:: Smoking status: Patient reports the use of cigarette tobacco products, smokes one-half pack cigarettes per day. Assessment: 11:44 Reassessment: Patient is alert, oriented x 3, equal unlabored respirations, skin aa5 warm/dry/pink. Vital Signs: 10:19 BP 167 / 91; Pulse 71; Resp 18; Temp 98.2; Pulse Ox 98% on R/A; Weight 104.33 kg; nj1 Height 6 ft. 0 in. ; Pain 9/10; 10:19 Body Mass Index 31.19 (104.33 kg, 182.88 cm) [facility] 10:19 Pain Scale: Adult [facility] ED Course: 10:04 Patient arrived in ED. im 10:10 Kenyon Hector MD is Attending Physician. bs3 10:25 Triage completed. nj1 10:27 Arm band placed on right wrist. nj1 11:32 XRAY Foot RIGHT 3 View In Process Unspecified. EDMS 11:44 No provider procedures requiring assistance completed. Patient did not have IV access aa5 during this emergency room visit. Administered Medications: 11:17 Drug: Clindamycin PO 450 mg Route: PO; nj1 Outcome: 11:33 Discharge ordered by MD. bs3 11:44 Discharged to home ambulatory. aa5 11:44 Condition: good 11:44 Discharge instructions given to patient, Instructed on discharge instructions, follow up and referral plans. medication usage, Demonstrated understanding of instructions, follow-up care, medications, Prescriptions given X 1. 11:45 Patient left the ED. aa5 Signatures: Dispatcher [employer] EDMS Arlette Metz, RN RN aa5 Kenyon Hector MD MD bs3 Esha Reyes RN RN nj1 Leslie Carbone Corrections: (The following items were deleted from the chart) 10:27 10:19 Pulse 71bpm; Resp 18bpm; Pulse Ox 98% RA; Temp 98.2F; 104.33 kg; Height 6 ft. 0 nj1 in.; BMI: 31.1; Pain 11/23, Adult; nj1
--- NOTE | 2022-08-07 11:37 | RAD REPORT ---
EXAM DESCRIPTION: RAD - Foot Right 3 View - 08/07/2022 11:30 am CLINICAL HISTORY: 5th toe infection, possible fb;Deformity COMPARISON: No comparisons TECHNIQUE: Right foot, 3 views. FINDINGS: No fracture, dislocation or periosteal reaction. No air or foreign body in the soft tissues. IMPRESSION: Negative right foot examination.
[2022-08-07 11:52] VITALS: BP 167/91; TEMP 98.2; O2SAT 98
== END 2022-08-07 11:45 | disposition home or self-care (01) ==
LOC: ER 10:00
PROC: 0H9MXZZ Drainage of Right Foot Skin, External Approach (ICD-10-PCS; principal; 2022-08-07)
DX: L02.611 Cutaneous abscess of right foot (principal); I10 Essential (primary) hypertension; F17.210 Nicotine dependence, cigarettes, uncomplicated
CPT/HCPCS: 99283